=== PATIENT | female | born 1995 | race Caucasian/White ===

== ENCOUNTER → 2017-04-22 17:55 | Outpatient (CLI) | payer BC, SELFPAY ==
[2017-04-22 20:11] LABS: Chlamydia Trachomatis by PCR Negative (Negative); Neisserai gonorrhoeae by PCR Negative (Negative); Probe Check PASS; Sample Adequacy Control PASS; Specimen Processing Control PASS
== END ==
PROVIDERS: Visit Provider Nurse Practitioner Women's Health
DX: Z11.3 Encounter for screening for infections with a predominantly sexual mode of transmission (principal)
CPT/HCPCS: 87491; 87591

== ENCOUNTER → 2018-04-23 18:45 | Outpatient (CLI) | payer OTHER, SELFPAY ==
[2018-04-23 13:32] VITALS: BMI 28.1
[2018-04-23 22:25] LABS: Chlamydia Trachomatis by PCR Negative (Negative); Neisserai gonorrhoeae by PCR Negative (Negative); Probe Check PASS; Sample Adequacy Control PASS; Specimen Processing Control PASS
[2018-04-29 16:39] LABS: HPV APTIMA, High Risk Negative (Negative)
== END ==
PROVIDERS: Referring Provider Nurse Practitioner Women's Health; Visit Provider Nurse Practitioner Women's Health
DX: Z12.4 Encounter for screening for malignant neoplasm of cervix (principal); Z11.3 Encounter for screening for infections with a predominantly sexual mode of transmission
CPT/HCPCS: 87491; 87591; 88175; G0145

== ENCOUNTER → 2019-03-18 | Outpatient (CLI) | payer OTHER, SELFPAY ==
[2019-03-18 11:14] VITALS: BMI 28.1
[2019-03-18 17:07] LABS: Amphetamine Urine VISTA NEGATIVE (<1000 ng/mL); Barbiturate Urine VISTA NEGATIVE (< 200 ng/mL); Benzodiazepine Urine VISTA NEGATIVE (< 200 ng/mL); Cocaine Urine VISTA NEGATIVE (< 300 ng/mL); Ecstacy Urine VISTA NEGATIVE (< 500 ng/mL); Methadone Urine VISTA NEGATIVE (< 300 ng/mL); PCP Urine VISTA NEGATIVE (< 25 ng/mL); THC Urine VISTA NEGATIVE (< 50 ng/mL); Vista UDS pH Range 5
[2019-03-18 19:42] LABS: Chlamydia Trachomatis by PCR Negative (Negative); Neisserai gonorrhoeae by PCR Negative (Negative); Probe Check PASS; Sample Adequacy Control PASS; Specimen Processing Control PASS
== END | disposition home or self-care (01) ==
LOC: LABSPEC 16:08
PROVIDERS: Referring Provider Nurse Practitioner Women's Health; Visit Provider Nurse Practitioner Women's Health
DX: Z34.90 Encounter for supervision of normal pregnancy, unspecified, unspecified trimester (principal)
CPT/HCPCS: 80307; 87086; 87088; 87491; 87591

== ENCOUNTER → 2019-04-16 11:07 | Outpatient (CLI) | payer OTHER, SELFPAY ==
[2019-04-16 11:05] VITALS: BMI 28.1
[2019-04-16 11:41] LABS: Absolute Neutrophil Count 7.4 X10^3/uL (2.0-7.7); Basophil# 0.04 X10^3/uL; Basophil% 0.4 % (0-1); Eosinophils% 0.9 % (0-5); Hematocrit 39.1 % (37-47); Hemoglobin 13.6 g/dL (12.0-15.0); Mean Corp Hgb Conc 34.8 g/dL (32-36); Mean Corpuscular Hgb 30.9 pg (27.0-32.0); Mean Corpuscular Volume 88.9 fL (81-99); Mean Platelet Vol. 9.7 fl (6.2-12.0); Monocyte# 0.88 X10^3/uL; Monocyte% 8.1 % (0-10); NRBC Flagged by Analyzer 0 % (0-5); Neutrophil # 7.37 X10^3/uL (2.7-7.7); Neutrophil % 67.6 % (47-70); Platelet Count 283 K/mm3 (150-450); RBC Distribution Width CV 12.3 % (11.6-14.6); RBC Distribution Width SD 39.9 fl (35.1-43.9); White Blood Count 10.9 K/mm3 (4.4-11.0)
[2019-04-16 12:46] LABS: HIV - WCH Non-Reactive (Nonreactive); Hepatitis B Surface Antigen Non-Reactive (Nonreactive); Hepatitis C Antibody Non-Reactive (Nonreactive)
[2019-04-22 00:26] LABS: Rapid Plasmin Reagin (RPR) NONREACTIVE (NONREACTIVE)
== END ==
PROVIDERS: Nurse Practitioner Women's Health; Referring Provider Obstetrics & Gynecology; Visit Provider Obstetrics & Gynecology
DX: Z34.90 Encounter for supervision of normal pregnancy, unspecified, unspecified trimester (principal)
CPT/HCPCS: 36415; 85025; 86592; 86703; 86762; 86803; 86850; 86900; 86901; 87340

== ENCOUNTER → 2019-07-23 13:37 | Outpatient (CLI) | payer OTHER, SELFPAY ==
[2019-07-23 13:32] VITALS: BMI 29.8
[2019-07-23 15:48] LABS: Absolute Lymphocyte Count 2.14 X10^3/uL (0.83-4.51); Absolute Neutrophil Count 8.7 X10^3/uL (2.0-7.7); Basophil# 0.04 X10^3/uL; Basophil% 0.3 % (0-1); Eosinophil# 0.07 X10^3/uL; Eosinophils% 0.6 % (0-5); Hematocrit 37.6 % (37-47); Hemoglobin 12.7 g/dL (12.0-15.0); Lymphocyte # 2.14 X10^3/ul (4.0); Lymphocyte % 17.4 % (19-41); Mean Corp Hgb Conc 33.8 g/dL (32-36); Mean Corpuscular Hgb 31.9 pg (27.0-32.0); Mean Corpuscular Volume 94.5 fL (81-99); Mean Platelet Vol. 10.3 fl (6.2-12.0); Monocyte# 1.01 X10^3/uL; Monocyte% 8.2 % (0-10); NRBC Flagged by Analyzer 0 % (0-5); Neutrophil # 8.73 X10^3/uL (2.7-7.7); Neutrophil % 71.1 % (47-70); Platelet Count 268 K/mm3 (150-450); RBC Distribution Width SD 44.5 fl (35.1-43.9); Red Blood Count 3.98 M/mm3 (4.2-5.4); White Blood Count 12.3 K/mm3 (4.4-11.0)
[2019-07-23 16:18] LABS: Glucose Challenge Gest 1H 50g 94 mg/dL (70-140)
== END ==
PROVIDERS: Referring Provider Nurse Practitioner Women's Health; Visit Provider Nurse Practitioner Women's Health
DX: Z34.00 Encounter for supervision of normal first pregnancy, unspecified trimester (principal)
CPT/HCPCS: 36415; 82950; 85025

== ENCOUNTER → 2019-09-24 | Outpatient (CLI) | payer OTHER, SELFPAY ==
[2019-09-24 14:13] VITALS: BMI 34.4
== END | disposition home or self-care (01) ==
LOC: LABSPEC 16:24
PROVIDERS: Referring Provider Obstetrics & Gynecology; Visit Provider Obstetrics & Gynecology
DX: Z34.00 Encounter for supervision of normal first pregnancy, unspecified trimester (principal)
CPT/HCPCS: 87081

== ENCOUNTER → 2019-10-06 10:16 | Outpatient (CLI) | payer OTHER, SELFPAY ==
[2019-09-30 13:49] VITALS: BMI 34.4
== END ==
PROVIDERS: PCP Family Medicine; Referring Provider Obstetrics & Gynecology; Visit Provider Obstetrics & Gynecology
DX: Z11.59 Encounter for screening for other viral diseases (principal)
CPT/HCPCS: 87635; 94799; U0003

== ENCOUNTER 2019-10-13 04:55 | Inpatient (IN) | payer OTHER, SELFPAY ==
[2019-09-30 13:49] VITALS: BMI 34.4
[2019-10-09 12:46] VITALS: BMI 34.4
[2019-10-13] VITALS (17 sets, daily range): BP systolic 66–116; BP diastolic 36–92; PULSE 71–112; RESP 14–18; TEMP 36.1–37.3; O2SAT 95–99; BMI 37.3
--- NOTE | 2019-10-13 04:40 | PCM.HPOB.BLA ---
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 Growth US q4w. Declined further genetic testing. Stable MFM US on 08/02/19, stable 08/30/19 US, consultation w ped. ortho surgery already done (2) Status: Acute Qualifiers: Comment: declined carrier, NIPT, NTd screen. FOB adopted. Anatomy reviewed. nl echo. COVID neg (3) Supervision of normal first Status: Acute Qualifiers: Comment: PRR MARYANN 10/19/19 girl Conner [place] (4) Transverse vaginal septum Status: Acute Comment: Csection scheduled 10/12 at 7:30am. recommend primary low transverse c section for delivery. 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 OB Visit MARYANN Calculator Estimated Delivery Date Method Current WG Current Estimate 10/19/19 Ultrasound #1 38w 4d Other Estimates 10/19/19 LMP (Certain) 38w 4d Expected Delivery Route/Plan LTCS with SM due to septum Labor Preferences- CB/BF classes: declines labor support person: Orion labor intervention preferences: none pain management options preferred: open to epidural cut cord/dad catch: yes yes : yes PP control planned: pill discussed possible routes of delivery and associated risks: discussed possible delivery modalities and possible indications for each including R/B/A of , VAVD, and CS. questions answered. special requests: none Specific Issue/Plans flu vaccine given tdap vaccine given rhogam na LARC form signed yes movement and labor precautions reviewed. Problem list reviewed and updated with the most current details and appropriate orders placed. Continue routine care and follow up unless otherwise noted in visit notes/problem list details. Initial Weight: 152 lb Date EGA Weight BP Urine Prot Glucose FHR FuHt Pres Dilation Effaced St Visit Note 03/18/19 9w 2d 152 lb 2 oz (+2 oz) 100/56 168 04/16/19 13w 3d 159 lb (+7 lb) 102/56 167 SM- no vb cramping 05/14/19 17w 3d 160 lb (+8 lb) 96/60 Negative Negative 155 SM- no vb lof cramping anatomy scheduled 06/25/19 23w 3d 174 lb (+22 lb) 116/62 Negative Negative 145 Sm- no vb lof good fm no regular ctx 07/23/19 27w 3d 181 lb (+29 lb) 106/70 Negative Negative 151 27 MH-No Vb, LOF. Good Fm. 28 wk labs, tdap. 08/13/19 30w 3d 192 lb (+40 lb) 118/84 Negative Negative 135 31 Sm- no vb lof good fm no regular ctx 08/27/19 32w 3d 194 lb (+42 lb) 126/70 Negative Negative 130 33 SM- no vb lof good fm no regular ctx 09/10/19 34w 3d 201 lb (+49 lb) 136/80 Negative Negative 130 34 Cephalic SM- no vb lof good fm no regular ctx 09/24/19 36w 3d 203 lb 6 oz (+51 lb 6 oz) 124/80 Negative Negative 130 36 Cephalic 1.5 SM- no vb lof good fm no regular ctx. Upon cervical exam examination was noted that the patient has a SM- no vb lof good fm no regular ctx. left cervix dilated right closed. Upon cervical exam examination was noted that the patient has a transverse vaginal septum and a duplication of the cervix suspicious for uterine didelphys. This had not been previously diagnosed and it was discussed with the patient that this could be a risk at delivery for hemorrhage due to rupture of septum that would be difficult to repair at the time of delivery. I would recommend proceeding with a primary low transverse and consider DOLLY AC for future labors if the septum is removed in the interval. 09/30/19 37w 2d 208 lb (+56 lb) 120/88 Negative Negative 145 37 Cephalic Sm- no vb lof good fm no regular ctx schedule cs 10/08/19 38w 3d 208 lb 2 oz (+56 lb 2 oz) 138/80 Negative Negative 140 38 Cephalic GP - no LOF, VB, DFM, ctx. Discussed risks and benefits of . ACOG First Trimester First Trimester: Discussed Diagnostics Diagnostics Diagnostics Blood Type A POSITIVE 04/16/19 Antibody Screen NEGATIVE 04/16/19 Glucose 1 Hr 50 gm 94 mg/dL (70-140) 07/23/19 HIV 1&2 Antibody Non-Reactive (Nonreactive) 04/16/19 Rubella IgG Antibody 17.0 IU/mL 04/16/19 Hgb 12.7 g/dL (12.0-15.0) 07/23/19 Hct 37.6 % (37-47) 07/23/19 RPR NONREACTIVE (NONREACTIVE) 04/16/19 Details: HIV: Urine Culture: Sequential Screen: NIPT Screen: ROS Const Denies chills, Reports fatigue, Denies fever(s), Denies headache(s), Reports increased appetite, Reports weight gain ENT Denies headache(s) Card Denies chest pain, Denies shortness of breath Resp Denies cough, Denies shortness of breath GI Denies constipation, Denies heartburn, Denies nausea, Denies vomiting Denies abnormal vaginal bleeding, Denies painful urination, Denies pelvic pain, Denies vaginal discharge Skin/Breast Reports breast pain Neuro No headache(s) Psych Denies anxiety, Denies depression Endo Reports fatigue Exam Const General: cooperative, healthy appearing, comfortable, no acute distress, well developed, well groomed Orientation: alert, awake, oriented x3 HENMT Head: normal to inspection, normocephalic, atraumatic Neck Neck: normal visual inspection, full ROM Resp Effort & Inspection: normal respiratory effort, able to speak in complete sentences, symmetric chest movement Cardio Rate: regular rate GI Inspection: normal to inspection, non-distended Palpation: soft, no guarding, not rigid, nontender, other (gravid) Skin General: no rashes or lesions noted, elasticity normal, turgor normal Lesions: no lesions Rashes: no rashes Trauma: no lacerations or abrasions Neuro General: alert, awake, oriented x3, tone normal, moves all extremities Cranial Nerves: CN's II-XI intact bilaterally, PERRL, accommodation normal, EOM intact bilaterally Cognition: normal cognition Speech: speech normal Gait: normal gait Extrem General: full ROM, no pedal edema Psych Appearance: grossly normal, well kempt Mental Status: mental status grossly normal Mood: congruent mood Affect: normal affect Speech and Movement: speech and movement normal Attitude: cooperative Thought Process: normal Thought Content: normal Judgment: judgment good Results POC Urinalysis 2 Dip (Clinic) Office Urine Glucose Negative Last Edit by Dana Proctor on 10/08/19 14:13 Office Urine Protein Negative Last Edit by Dana Proctor on 10/08/19 14:13 Assessment & Plan Plan - Dr. Shyla Mina MD [facility] trimester education reviewed and updated. see problem list details for updated plan management information and see below for orders placed at this visit. Orders Orders: POC Urinalysis 2 Dip (Clinic) 10/08/19 Coding Level of Care Code OB Routine UPDATE- I have seen the patient and performed any clinically relevant updates to the history and physical exam. Britt Vance MD
[2019-10-13] MEDS: Lactated Ringers 1,000 ML 999 ML IV (05:25)
[2019-10-13 05:37] LABS: Absolute Neutrophil Count 8.5 X10^3/uL (2.0-7.7); Basophil# 0.04 X10^3/uL; Basophil% 0.4 % (0-1); Eosinophil# 0.06 X10^3/uL; Eosinophils% 0.5 % (0-5); Hematocrit 37.1 % (37-47); Hemoglobin 12.6 g/dL (12.0-15.0); Lymphocyte % 14.2 % (19-41); Mean Corpuscular Hgb 31.3 pg (27.0-32.0); Mean Corpuscular Volume 92.3 fL (81-99); Mean Platelet Vol. 10.5 fl (6.2-12.0); Monocyte# 0.88 X10^3/uL; Monocyte% 7.8 % (0-10); NRBC Flagged by Analyzer 0 % (0-5); Neutrophil # 8.46 X10^3/uL (2.7-7.7); Neutrophil % 74.9 % (47-70); Platelet Count 232 K/mm3 (150-450); RBC Distribution Width CV 13.5 % (11.6-14.6); RBC Distribution Width SD 44.8 fl (35.1-43.9); Red Blood Count 4.02 M/mm3 (4.2-5.4); White Blood Count 11.3 K/mm3 (4.4-11.0)
[2019-10-13] MEDS: Acetaminophen 500 MG Tablet 1000 MG PO ×4 (05:44→23:57)
[2019-10-13] MEDS: Lactated Ringers 1,000 ML 150 ML IV (06:27)
[2019-10-13] MEDS: Sodium Citrate/Citric Acid 30 ML UDC PO (07:26)
[2019-10-13] MEDS: Cefazolin 2 GM in 0.9% Normal Saline 100 ML IV (07:31)
--- NOTE | 2019-10-13 07:43 | OP.PCM_ITS ---
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 Growth US q4w. Declined further genetic testing. Stable MFM US on 08/02/19, stable 08/30/19 US, consultation w ped. ortho surgery already done (2) Status: Acute Qualifiers: Comment: declined carrier, NIPT, NTd screen. FOB adopted. Anatomy reviewed. nl echo. COVID neg (3) Supervision of normal first Status: Acute Qualifiers: Comment: PRR MARYANN 10/19/19 girl Conner Richmond (4) Transverse vaginal septum Status: Acute Comment: Csection scheduled 10/12 at 7:30am. recommend primary low transverse c section for delivery. RGI referral after for septum removal (5) Uterus didelphys Status: Acute Comment: needs two paps PP Delivery Classification: Scheduled Final MARYANN: 10/19/19 Gestational age: 39 Weeks and 6 Days vp strategic partnerships: Shyla Mina Type of Anesthesia:: Spinal Special Medications: none Implants Used: none Date of Procedure: 10/13/19 Pre-Operative Diagnosis: didelphys and vaginal transverse septum Post-Operative Diagnosis: same in right horn Description of Procedure: The patient is a 24-year-old G1, P0 at 39 and 1 presented for primary . She has an intact transverse vaginal septum rating the upper two thirds of the vagina and uterine didelphys and therefore to eliminate risk for trauma with childbirth decision for primary low transverse was made. Spinal anesthesia was placed without difficulty. Martinez catheter was placed. The patient was placed in the dorsal supine position with leftward tilt. Patient was prepped and draped in the normal sterile fashion. Pfannenstiel skin incision was made with the scalpel and carried through to the underlying layer of fascia with the scalpel. Fascia was nicked in the midline and the incision extended laterally. The rectus bellies were dissected off superiorly and inferiorly with out complication both sharply and bluntly. The peritoneum was entered digitally. The incision was stretched and a low transverse uterine incision was made with the scalpel. was noted to be in the right horn of the didelphyic uterus. The 's head was delivered atraumatically followed by the anterior and posterior shoulders without complication the rest of the delivered. The cord was clamped and cut and the infant was handed off to awaiting nurse. The placenta was delivered spontaneously immediately following and was noted to be intact and have a three-vessel cord. The uterus was exteriorized cleared of all clots and debris, and the incision was closed in a double layer closure using #1 Monocryl. The ovaries and fallopian tubes were noted to be within normal limits. The uterus was returned to the maternal abdomen and gutters were cleared of all clots and debris. The peritoneum was closed with 3-0 Monocryl in a running fashion. Gloves were changed prior to fascial closure. Fascia was closed with 0 PDS in a running fashion. Subcutaneous tissue was copiously irrigated and the skin was closed with 3-0 Monocryl in a subcuticular fashion. Mepilex dressing was applied without complication. Patient was taken to recovery in stable condition. It was discussed with the patient that based on the clinical information obtained d uring this encounter, combined with her history, at this time I would recommend vaginal if septum is removed in between pregnancies or for future deliveries if further pregnancies are desired. Amniotic Membrane Rupture Type: Artificial Amniotic Fluid Description: Clear Placenta Disposition: [facility] Fluids Replaced: crystalloid Cord Vessel Description: 3 Vessels Infant Gender: Male Delayed cord clamping: Yes Antibiotic Given: Ancef 2 grams IV x1 Pt instructed on risks of surgery: Bleeding, Anesthesia Risks, Infection, Injury to surrounding structure(s) including bowel and bladder Complications: None - Admit VTE Documentation VTE Present on Admission: No VTE Mechan Device Prophylaxis: SCD's Multi Select Codes - Urinary/Genital Urinary/Genital CPT Codes: 78500 Delivery [facility]
[2019-10-13] MEDS: Oxytocin 30 units/NS 500 ml 30 UNITS/500 ML IV.SOLN 167 UNITS IV (08:35)
[2019-10-13] MEDS: Lactated Ringers 500 ML IV.SOLN. IV (08:50)
[2019-10-13] MEDS: Lactated Ringers 1,000 ML 100 ML IV (11:38)
[2019-10-13] MEDS: Senna/Docusate Sodium 1 Tablet PO (11:39)
[2019-10-13] MEDS: Ketorolac 30 MG/ML Syringe IV ×2 (14:28→20:19)
[2019-10-13] MEDS: 0.9% Saline Lock 10 ML Syringe IV (14:28)
[2019-10-13] MEDS: Enoxaparin 40 MG/0.4 ML Syringe SC (20:19)
[2019-10-14] VITALS: BP 97/59; PULSE 93; RESP 18; TEMP 36.7; O2SAT 96
[2019-10-14] MEDS: Ketorolac 30 MG/ML Syringe IV ×2 (02:23→07:48)
[2019-10-14] MEDS: 0.9% Saline Lock 10 ML Syringe IV ×2 (02:24→07:48)
[2019-10-14 03:15] VITALS: BP 106/62; PULSE 90; RESP 18; TEMP 37.2; O2SAT 100
[2019-10-14] MEDS: Acetaminophen 500 MG Tablet 1000 MG PO ×4 (06:09→23:59)
[2019-10-14 06:27] LABS: Hematocrit 32.6 % (37-47); Hemoglobin 10.8 g/dL (12.0-15.0); Mean Corp Hgb Conc 33.1 g/dL (32-36); Mean Corpuscular Hgb 31.4 pg (27.0-32.0); Mean Corpuscular Volume 94.8 fL (81-99); Mean Platelet Vol. 10.5 fl (6.2-12.0); Platelet Count 185 K/mm3 (150-450); RBC Distribution Width CV 13.7 % (11.6-14.6); RBC Distribution Width SD 46.5 fl (35.1-43.9); Red Blood Count 3.44 M/mm3 (4.2-5.4); White Blood Count 10.1 K/mm3 (4.4-11.0)
[2019-10-14 07:56] VITALS: BP 97/55; PULSE 88; RESP 18; TEMP 36.7
--- NOTE | 2019-10-14 07:56 | PCM.PN.OB ---
Subjective: Patient doing well without complaints. Pain well controlled. Tolerating PO. Passing gas. Ambulating and voiding without difficulty. Breast feeding without difficulty. Denies chest pain, shortness of breath, calf pain/swelling, fevers, chills, lightheadedness. Objective: Laboratory Tests 10/14/19 Range/Units 06:15 WBC 10.1 (4.4-11.0) K/mm3 RBC 3.44 L (4.2-5.4) M/mm3 Hgb 10.8 L (12.0-15.0) g/dL Hct 32.6 L (37-47) % MCV 94.8 (81-99) fL MCH 31.4 (27.0-32.0) pg MCHC 33.1 (32-36) g/dL RDW Std Deviation 46.5 H (35.1-43.9) fl RDW Coeff of Marisa 13.7 (11.6-14.6) % Plt Count 185 (150-450) K/mm3 MPV 10.5 (6.2-12.0) fl - Physical Exam Vitals/I&O's: Vital Signs Temp Pulse Resp BP Pulse Ox 98.9 F 90 18 106/62 100 10/14/19 03:15 10/14/19 03:15 10/14/19 03:15 10/14/19 03:15 10/14/19 03:15 Oxygen Delivery Method Room Air Weight: 210 lb 12.191 oz Body Mass Index (BMI) 37.3 Intake and Output for Last 24 Hours 10/12/19 10/13/19 10/14/19 23:59 23:59 23:59 Intake Total 2770 / 2770 Output Total 425 / 1025 600 / 600 Balance 2345 / 1745 -600 / -600 General: Alert, Oriented x3, Cooperative HEENT: Atraumatic, PERRLA, EOMI, Normocephalic Neck: Supple Lungs: Clear to auscultation, Normal air movement, No rhonchi Cardiovascular: Regular rate, No murmurs Abdomen: Bowel Sounds Present, Soft, Non Tender, Non-Distended, - - Dressing in place - c/d/i Neurological: Cranial nerves II-XII grossly intact Psych/Mental Status: Normal Affect, Appropriate Laboratory Results 10/14/19 06:15: WBC 10.1, RBC 3.44 L, Hgb 10.8 L, Hct 32.6 L, MCV 94.8, MCH 31.4, MCHC 33.1, RDW Std Deviation 46.5 H, RDW Coeff of Marisa 13.7, Plt Count 185, MPV 10.5 Current Medications Acetaminophen (Tylenol) 1,000 mg PO Q6 [facility] Last Admin: 10/14/19 06:09 Dose: 1,000 mg Documented by: Bisacodyl (Dulcolax) 10 mg RECTAL UD PRN PRN Reason: If no BM Diphenhydramine HCl (Benadryl) 25 mg PO Q6H PRN PRN PRN Reason: ITCHING Stop: 10/14/19 08:47 Enoxaparin Sodium (Lovenox) 40 mg SC DAILY [facility] Last Admin: 10/13/19 20:19 Dose: 40 mg Documented by: Hydrocortisone (Hytone) 1 applic TOPICAL TID PRN PRN; Protocol PRN Reason: Discomfort Naloxone HCl 4 mg/ Dextrose 504 mls @ 0 mls/hr IV .Q0M PRN; Protocol PRN Reason: Respiratory depression Ketorolac Tromethamine (Toradol (Bkc)) 30 mg IV Q6H [facility] Stop: 10/14/19 08:01 Last Admin: 10/14/19 07:48 Dose: 30 mg Documented by: Methylergonovine Maleate (Methergine) 0.2 mg IM X1 PRN PRN Reason: Uterine Atony Nalbuphine HCl (Nubain) 5 mg IV Q3H PRN PRN PRN Reason: ITCHING Stop: 10/14/19 08:47 Naloxone HCl (Narcan) 0.02 mg IV Q1M PRN PRN Reason: RR <10 and pt unresponsive Naproxen (Naprosyn) 500 mg PO Q8 [facility] Ondansetron HCl (Zofran) 4 mg IV Q4H PRN PRN PRN Reason: Nausea Oxycodone HCl (Oxyir) 5 - 10 mg PO Q4H PRN PRN PRN Reason: Pain Score 4-10/10 Prochlorperazine Edisylate (Compazine Iv) 10 mg IV Q6H PRN PRN PRN Reason: NAUSEA Senna/Docusate Sodium (Senokot-S, Barbra-Colace) 0 tablet PO DAILY [facility] Last Admin: 10/13/19 11:39 Dose: 2 tablet Documented by: Simethicone (Mylicon) 80 mg PO PCHS PRN PRN Reason: Indigestion/stomach pain Sodium Chloride () 5 - 15 ml IV UD PRN PRN Reason: SALINE FLUSH Last Admin: 10/14/19 07:48 Dose: 10 ml Documented by: Medical Necessity - Tobacco Use Smoking Status: Never smoker Assessment/Plan All Active Problems (Last Reviewed 10/08/19 @ 14:06 by Dana Proctor) Uterus didelphys (Acute) Transverse vaginal septum (Acute) 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 routine post care 2. breast feeding- support given 3. rh positive 4. rubella immune
[2019-10-14] MEDS: Senna/Docusate Sodium 1 Tablet PO (10:19)
[2019-10-14] MEDS: Enoxaparin 40 MG/0.4 ML Syringe SC (10:19)
[2019-10-14 13:02] VITALS: BP 121/75; PULSE 95; RESP 18; TEMP 37.3; O2SAT 97
[2019-10-14] MEDS: oxyCODONE 5 MG Tablet PO (13:10)
--- NOTE | 2019-10-14 13:13 | NURSING ---
upon entering room at 1255, pt found to be crying, states pain level 5. c/o right epigastric pain. Bp WNL see VS. denies h/a blurred vision. Pt then c/o pain in right shoulder. Pt assisted to L side lying position with right knee flexed to chest.
[2019-10-14] MEDS: Naproxen 250 MG Tablet 500 MG PO ×2 (14:30→21:57)
[2019-10-14 19:27] VITALS: BP 108/61; PULSE 100; RESP 16; TEMP 37.3; O2SAT 96
--- NOTE | 2019-10-14 22:10 | NURSING ---
This RN assuming care of patient and at this time. Bedside report received from Colleen MORENO.
[2019-10-15 01:27] VITALS: BP 115/69; PULSE 94; RESP 16; TEMP 36.7
[2019-10-15] MEDS: Acetaminophen 500 MG Tablet 1000 MG PO (06:11)
[2019-10-15] MEDS: Naproxen 250 MG Tablet 500 MG PO (06:11)
--- NOTE | 2019-10-15 07:55 | DCINST_ITS ---
Discharge Diet: No Restrictions Discharge Activity: May Not Drive - for 2 weeks or while taking narcotic pain meds., May Shower, May Take a Tub Bath - in 7 days. May resume sexual activity in: 4-6 weeks Lifting Restrictions: 20 pounds Additional Activity Instructions:: Nothing in the vagina for 4-6 weeks. You may return to work/school in 6 weeks. Call your doctor if your incision/area has: Continuous Slow Oozing, Sudden Increased Bleeding, Increased Pain/ Swelling, Increased Redness, Foul Smelling Discharge Call your doctor if you observe: Fever of 101 or Higher Suture Line Care: Avoid Pulling/Pushing, Avoid Pinching/Bending Additional Instructions: If you experience any of the following, contact your healthcare provider. * Bleeding that soaks a pad every hour for 2 hours * Fever 100.4 or higher * Unrelieved incision or abdominal pain * Swelling, redness, discharge or bleeding from your incision or episiotomy site * Your incision begins to separate * Problems urinating (including inability to urinate or burning while urinating). * Visual changes * Severe headache * Flu-like symptoms * Pain or redness in one of both of your breasts * Pain, warmth, tenderness or swelling in your legs, especially the calf area * Frequent nausea and vomiting * Symptoms of depression or anxiety If you experience any of the following, call 911 or go to the nearest Emergency Room. * Chest pain * Problems breathing * Seizure activity * Partial or complete paralysis of a body part, slurred speech, weakness or drooping of the face, or a sudden inability to walk or hold your balance Allergies/Adverse Reactions: Allergies No Known Allergies Allergy (Verified 10/13/19 05:52) Medications to take at Discharge vitamin#30 30 mg iron-10 mg iron-folic acid 1 mg-omg3 capsule 1 cap PO DAILY 04/16/19 Follow-Up: Call to make an appointment with your doctor for an incision check in 1-2 weeks. You will also need a 6 week post- follow up appointment. Test results from this visit will be discussed in further detail at your follow- up appointment, if applicable. Primary Care Physician: Anu Biggs MD [Primary Care Provider] -
--- NOTE | 2019-10-15 07:56 | PN.OBGYN_ITS ---
Subjective: Patient doing well without complaints. Pain well controlled. Tolerating PO. Ambulating and voiding without difficulty. Passing gas. Breast feeding without difficulty. Denies chest pain, shortness of breath, calf pain/swelling, fevers, chills, lightheadedness. Objective: Laboratory Tests 10/14/19 10/13/19 10/13/19 Range/Units 06:15 05:25 05:25 WBC 10.1 11.3 H (4.4-11.0) K/mm3 RBC 3.44 L 4.02 L (4.2-5.4) M/mm3 Hgb 10.8 L 12.6 (12.0-15.0) g/dL Hct 32.6 L 37.1 (37-47) % MCV 94.8 92.3 (81-99) fL MCH 31.4 31.3 (27.0-32.0) pg MCHC 33.1 34.0 (32-36) g/dL RDW Std Deviation 46.5 H 44.8 H (35.1-43.9) fl RDW Coeff of Marisa 13.7 13.5 (11.6-14.6) % Plt Count 185 232 (150-450) K/mm3 MPV 10.5 10.5 (6.2-12.0) fl Immature Gran % (Auto) 2.200 H (0.0-0.9) % Neut % (Auto) 74.9 H (47-70) % Lymph % (Auto) 14.2 L (19-41) % Otero % (Auto) 7.8 (0-10) % Eos % (Auto) 0.5 (0-5) % Baso % (Auto) 0.4 (0-1) % Absolute Neuts (auto) 8.5 H (2.0-7.7) X10^3/uL Absolute Lymphs (auto) 1.60 (0.83-4.51) X10^3/uL Nucleated RBC % 0 (0-5) % Blood Type A POSITIVE Antibody Screen NEGATIVE - Physical Exam Vitals/I&O's: Vital Signs Temp Pulse Resp BP Pulse Ox 98.1 F 94 16 115/69 96 10/15/19 01:27 10/15/19 01:27 10/15/19 01:10/15/19 01:27 10/14/19 19:27 Oxygen Delivery Method Room Air Weight: 210 lb 12.191 oz Body Mass Index (BMI) 37.3 Intake and Output for Last 24 Hours 10/13/19 10/14/19 10/15/19 23:59 23:59 23:59 Intake Total 2770 / 2770 Output Total 425 / 1025 600 / 600 Balance 2345 / 1745 -600 / -600 General: Alert, Oriented x3, Cooperative HEENT: Atraumatic, PERRLA, EOMI, Normocephalic Neck: Supple Lungs: Normal air movement Cardiovascular: Regular rate Abdomen: Soft, Non Tender, Non-Distended, Passing Flatus, - - Incision c/d/o with dressing in place, fundus firm Extremities: No edema, No Calf Tenderness Neurological: Cranial nerves II-XII grossly intact, Neuro grossly intact Psych/Mental Status: Normal Affect, Appropriate Current Medications Acetaminophen (Tylenol) 1,000 mg PO Q6 [facility] Last Admin: 10/15/19 06:11 Dose: 1,000 mg Documented by: Bisacodyl (Dulcolax) 10 mg RECTAL UD PRN PRN Reason: If no BM Enoxaparin Sodium (Lovenox) 40 mg SC DAILY [facility] Last Admin: 10/14/19 10:19 Dose: 40 mg Documented by: Hydrocortisone (Hytone) 1 applic TOPICAL TID PRN PRN; Protocol PRN Reason: Discomfort Naloxone HCl 4 mg/ Dextrose 504 mls @ 0 mls/hr IV .Q0M PRN; Protocol PRN Reason: Respiratory depression Methylergonovine Maleate (Methergine) 0.2 mg IM X1 PRN PRN Reason: Uterine Atony Naloxone HCl (Narcan) 0.02 mg IV Q1M PRN PRN Reason: RR <10 and pt unresponsive Naproxen (Naprosyn) 500 mg PO Q8 [facility] Last Admin: 10/15/19 06:11 Dose: 500 mg Documented by: Ondansetron HCl (Zofran) 4 mg IV Q4H PRN PRN PRN Reason: Nausea Oxycodone HCl (Oxyir) 5 - 10 mg PO Q4H PRN PRN PRN Reason: Pain Score 4-10/10 Last Admin: 10/14/19 13:10 Dose: 10 mg Documented by: Prochlorperazine Edisylate (Compazine Iv) 10 mg IV Q6H PRN PRN PRN Reason: NAUSEA Senna/Docusate Sodium (Senokot-S, Barbra-Colace) 0 tablet PO DAILY [facility] Last Admin: 10/14/19 10:19 Dose: 2 tablet Documented by: Simethicone (Mylicon) 80 mg PO PCHS PRN PRN Reason: Indigestion/stomach pain Last Admin: 10/14/19 13:11 Dose: 80 mg Documented by: Sodium Chloride () 5 - 15 ml IV UD PRN PRN Reason: SALINE FLUSH Last Admin: 10/14/19 07:48 Dose: 10 ml Documented by: Medical Necessity - Tobacco Use Smoking Status: Never smoker Assessment/Plan All Active Problems (Last Reviewed 10/08/19 @ 14:06 by Dana Proctor) Uterus didelphys (Acute) Transverse vaginal septum (Acute) 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 routine post care 2. breast feeding- support given 3. rh positive 4. rubella immune 5. DC to home today
[2019-10-15 08:01] VITALS: BP 99/57; PULSE 87; RESP 16; TEMP 36.4; O2SAT 99
== END 2019-10-15 10:05 | disposition home or self-care (01) | DRG 788 ==
PROVIDERS: Admitting Provider Obstetrics & Gynecology; PCP Family Medicine; Referring Provider Obstetrics & Gynecology; Visit Provider Obstetrics & Gynecology
PROC: 10D00Z1 Extraction of Products of Conception, Low, Open Approach (ICD-10-PCS; CPT 59514; principal; 2019-10-13 07:15)
DX: O34.03 Maternal care for unspecified congenital malformation of uterus, third trimester (principal); Q51.20 Other doubling of uterus, unspecified; O35.8XX0 Maternal care for other (suspected) fetal abnormality and damage, not applicable or unspecified; Q52.11 Transverse vaginal septum; Z3A.39 39 weeks gestation of pregnancy; Z37.0 Single live birth
CPT/HCPCS: 85025; 85027; 86850; 86900; 86901; 99218; J7120; A4216; G0378; J2405

== ENCOUNTER → 2019-12-03 | Outpatient (CLI) | payer OTHER, SELFPAY ==
[2019-12-03 15:52] VITALS: BMI 32.1
[2019-12-09 16:22] LABS: HPV Reflexed? NOT INDICATED
[2019-12-09 21:34] LABS: HPV Reflexed? NOT INDICATED
== END | disposition home or self-care (01) ==
LOC: LABSPEC 16:55
PROVIDERS: PCP Family Medicine; Referring Provider Obstetrics & Gynecology; Visit Provider Obstetrics & Gynecology
DX: Z12.4 Encounter for screening for malignant neoplasm of cervix (principal); Q51.28 Other and unspecified doubling of uterus
CPT/HCPCS: 88175; G0145

== ENCOUNTER → 2020-12-07 11:44 | Outpatient (CLI) | payer OTHER, SELFPAY ==
[2020-12-11 15:21] LABS: HPV Reflexed? NOT INDICATED
== END ==
PROVIDERS: PCP Family Medicine; Visit Provider Obstetrics & Gynecology
DX: Q51.28 Other and unspecified doubling of uterus (principal); Z87.42 Personal history of other diseases of the female genital tract
CPT/HCPCS: 88175; G0145

== ENCOUNTER → 2021-12-17 | Outpatient (CLI) | payer OTHER, SELFPAY ==
[2021-12-28 14:21] LABS: HPV Reflexed? NOT INDICATED
== END | disposition home or self-care (01) ==
LOC: LABSPEC 16:57
PROVIDERS: PCP Family Medicine; Visit Provider Obstetrics & Gynecology
DX: Q51.28 Other and unspecified doubling of uterus (principal)
CPT/HCPCS: 88175; G0145

== ENCOUNTER 2022-03-26 03:16 | Inpatient (IN) | payer OTHER, SELFPAY ==
[2022-03-26] VITALS (19 sets, daily range): BP systolic 103–153; BP diastolic 71–97; PULSE 96–125; RESP 15–18; TEMP 36.4–37.1; O2SAT 96–100; BMI 34.0
--- NOTE | 2022-03-26 03:20 | CT_ITS ---
EXAM: CT ABDOMEN AND PELVIS WITH INTRAVENOUS CONTRAST CLINICAL INDICATION: rlq pain rlq pain TECHNIQUE: Helically acquired images were obtained of the abdomen and pelvis with intravenous contrast. This CT exam was performed using one or more of the following dose reduction techniques: automated exposure control, adjustment of the mA and/or kV according to patient size, and/or use of iterative reconstruction technique. This report was created using V2contact report generation technology. CONTRAST: IV 100mL Isovue-370 RADIATION DOSE: CTDIvol = 16.65 mGy, DLP = 819.14 mGy-cm COMPARISON: None. FINDINGS: LOWER THORAX: Unremarkable. Lung bases are clear. No cardiomegaly. No significant pericardial effusion. ABDOMEN: LIVER: Unremarkable. Homogeneous. No focal mass. GALLBLADDER AND BILE DUCTS: Unremarkable. No calcified gallstones. No gallbladder distention or wall edema. No intra- or extrahepatic biliary ductal dilation. PANCREAS: Unremarkable. No focal cystic or solid mass. SPLEEN: Unremarkable. Normal size without focal cystic or solid mass. ADRENALS: Unremarkable. No nodules. KIDNEYS AND URETERS: Unremarkable. Normal renal size and position. No hydronephrosis. STOMACH AND BOWEL: There is dilatation of the small bowel loops with diameters ranging up to 4 cm. As seen on axial images 78-86, there is a dilated loop of mid ileum which contains fecal-like material. There is mild mural thickening immediately distal to this point, which is likely to be inflammatory. However, small bowel lumen is not effaced and there is fluid distention of some loops of ileum distal to this point, indicating this does not represent a site of significant mechanical obstruction. There is decompression of some more distal small bowel loops, without demonstration of a discrete transition point. There is some mural thickening in the region of the terminal ileum as well. PELVIS: APPENDIX: The appendix is seen on axial images 46-65. The appendix is prominent in size with diameter 9 mm but not definitively abnormal. There is clean-appearing air in multiple segments of the appendix, including the distal appendix and there is no demonstrated appendicolith or periappendiceal fat infiltration or fluid. Acute appendicitis is thought to be unlikely. BLADDER: Unremarkable. REPRODUCTIVE: Unremarkable as visualized. No mass. ABDOMEN and PELVIS: INTRAPERITONEAL SPACE: There is a small amount of free fluid in the posterior cul-de-sac of the pelvis. No free air. BONES/JOINTS: Unremarkable. No suspicious lytic or blastic abnormality. SOFT TISSUES: There is an umbilical hernia, which contains fat. VASCULATURE: Unremarkable. Abdominal aorta is non-dilated. LYMPH NODES: Unremarkable. No enlarged lymph nodes. CT/Abdomen/Pelvis W IV Cont ONLY IMPRESSION: 1. Dilatation of some loops of [id number] ileum along with areas of mild mural thickening in the distal ileum, including terminal ileum. Findings suggest an infectious or inflammatory enteritis with overlying ileus. Crohn''s disease would be a consideration. Significant mechanical bowel obstruction is thought to be unlikely. 2. Appendix is prominent in size but not definitively abnormal with diameter of 9 mm. There are no surrounding inflammatory changes and acute appendicitis is thought to be unlikely. The appendix is located in the far right lateral abdomen and it is centered at the level of the umbilicus. Suggest clinical correlation with special attention in this region. 3. Small amount of free fluid in the posterior cul-de-sac of the pelvis, nonspecific finding. 4. Umbilical hernia contains fat, but no bowel. Electronically Signed: Vikram Kan MD at 4:50 EST ,
--- NOTE | 2022-03-26 03:21 | EDS_ITS ---
HPI HPI - GI History of Present Illness Chief Complaint: Abd Pain Informant: patient Abdominal Pain/Flank Pain Onset: Hours Context: Gradual Onset Timing: Continuous Quality: Aching Location: - (R abd) Current Severity: Severe Maximum Severity: Severe Worsened by: Car ride Relieved by: Nothing Nausea/Vomiting/Emesis GI Symptom: Positive for Nausea and Vomiting Onset: Today Diarrhea/Melena/Hematochezia GI Symptom: Negative for Diarrhea, Melena or Hematochezia Associated Symptoms Associated Symptoms: Negative for Dysuria, Frequency, Hematuria or Urgency Narrative Narrative: Patient with gradually worsening right-sided abdominal pain now associated with nausea and vomiting over the past 8 hours or more. No migration of the pain, just worsening in severity. No fevers or chills. Normal bowel movements and normal urination. Not that she knows of. No vaginal symptoms. Had a prior no other abdominal surgeries and otherwise healthy. Prior similar symptoms: No Recent Illness/Hospitalization: No PFSH PFSH Home Medications [place] 0.25 mg-35 mcg tablet (norgestimate-ethinyl estradiol) See Rx Instructions .Route .COMPLEX #364 tabs 12/17/21 [Rx Last Taken Unknown] Allergy/AdvReac Type Severity Reaction Status Date / Time No Known Allergies Allergy Verified 12/03/19 15:53 Family History Grandmother CVA (cerebral vascular accident) Heart disease Grandfather Heart disease Skin cancer COPD (chronic obstructive pulmonary disease) Aunt CVA (cerebral vascular accident) Breast cancer Father Cancer Surgical History History of low transverse section Social History Smoking Status: Never smoker alcohol intake: never substance use type: does not use caffeine: No what type of physical activity do you participate in: none seatbelt use: always do you feel safe at home: Yes additional social history: Regino Siddiqui Patient is unemployed ROS ROS ED Constitutional Constitutional ED: Denies chills or fever(s) Eyes Eyes: Denies change in vision or diplopia ENT ENT ED: Denies rhinorrhea or sore throat Cardiovascular Cardiovascular: Denies chest pain or palpitations Respiratory/Chest Respiratory/Chest: Denies cough or dyspnea Gastrointestinal Gastrointestinal: Reports abdominal pain, nausea and vomiting; Denies diarrhea Genitourinary Genitourinary ED: Denies dysuria, hematuria or urinary frequency Musculoskeletal Musculoskeletal: Denies back pain or neck pain Integumentary Denies abscess or rash Neurologic Neurologic: Denies headache(s), paresthesias or weakness Psychiatric Psychiatric: Denies anxiety or suicidal thoughts EXAM Physical Exam Const Vital Signs: 03/26/22 03:18 03/26/22 08:20 03/26/22 08:23 Temperature 98.8 F 98.3 F Temperature Source Temporal Oral Pulse Rate 125 H 96 Respiratory Rate 16 16 16 Blood Pressure 153/97 H 117/71 Blood Pressure Mean 115 86 Pulse Ox 100 99 Oxygen Delivery Method Room Air Room Air Positive well nourished and well developed Constitutional Narrative: Uncomfortable in pain but in no distress General Appearance ED: well developed and NAD HEENT Reports moist mucous membranes normocephalic and atraumatic Eyes PERRL and EOMs intact bilaterally Neck full ROM and supple Resp normal respiratory effort and clear to auscultation bilaterally Cardio regular rate, regular rhythm and no murmurs Rate: tachycardic GI non-distended GI Narrative: No tenderness in the right upper quadrant or lateral flank. Tender mostly in the area of McBurney's point. No guarding or rebound. Positive Rovsing and psoas, negative obturator sign. Auscultation: hypoactive bowel sounds Palpation: soft Back/Spine no CVA tenderness General Back: other FROM Extremity normal to inspection General Extremety ED: Negative for edema, pulses abnormal or tenderness General Extremity: Negative for edema or pulses abnormal Neuro oriented x3, CN's II-XII intact bilaterally and no sensory deficits noted Sensorium / Orientation: awake and alert Motor Exam: strength 5/5 throughout Skin no rashes or lesions noted and no wounds MDM MDM MDM Narrative Medical decision making narrative: Concern here for appendicitis. Ectopic as well as mimic such as mesenteric adenitis are also in the differential diagnosis, but CT with IV contrast is indicated. She is very nauseated and in a lot of pain, so I skipped oral contrast in order to avoid delays while treating her pain and nausea and given her IV fluids. [place] better after the medications. I reviewed the images and the radiology report. My interpretation of the CT agrees with that of the radiologist. The appendix is lateral to the cecum and rises to the level of the umbilicus, where the patient was initially complaining of pain. I reexamined her. She is tender there as well as down the McBurney's point. There are no inflammatory changes around appendix right now on the CT, but there are some possible mural thickening with mild dilatation at the terminal ileum. She does not have a history of Crohn's and has never had this pain before. I discussed with surgery Dr. Reid because I was considering early appendicitis more likely in this situation.His recommendation is to repeat a CT scan with oral contrast which should be done. His recommendation is to repeat the CT scan with oral contrast, which will be done. Repeat CT images and interpretation reviewed. My interpretation of the CT agrees with that of the radiologist. It now favors a possible evolving small bowel obstruction rather than any signs of appendicitis although the contrast did not make it all the way to the cecum. I discussed again with Dr. Reid's surgery. He recommends admitting to medicine, he will consult, and he also recommends repeating pelvic CT imaging in a couple hours to further evaluate distribution of the contrast which I think is reasonable. Plan is to admit her to observation. Lab Data Attestation: I reviewed the patient's lab results. Labs: Laboratory Results - last 24 hr 03/26/22 03/26/22 03/26/22 03:30 03:30 03:45 WBC 9.4 RBC 5.17 Hgb 15.2 H Hct 45.9 MCV 88.8 MCH 29.4 MCHC 33.1 RDW Std Deviation 38.8 RDW Coeff of Marisa 11.9 Plt Count 370 MPV 10.1 Immature Gran % (Auto) 0.300 Neut % (Auto) 57.6 Lymph % (Auto) 33.0 [place] % (Auto) 8.0 Eos % (Auto) 0.6 Baso % (Auto) 0.5 Absolute Neuts (auto) 5.4 Absolute Lymphs (auto) 3.10 Nucleated RBC % 0 Sodium 141 Potassium 3.6 Chloride 110 H Carbon Dioxide 19.0 L Anion Gap 12 BUN 10 Creatinine 0.92 Estim Creat Clear Calc 80.72 Est GFR (MDRD) Af Amer 96 Est GFR (MDRD) Non-Af 79 BUN/Creatinine Ratio 10.9 Glucose 96 Calcium 9.5 Urine Color Yellow Urine Clarity Clear Urine pH 6.0 Ur Specific [place] 1.025 Urine Protein 15 H Urine Glucose (UA) Normal Urine Ketones Negative Urine Occult Blood Negative Urine Nitrite Negative Urine Bilirubin Negative Urine Urobilinogen Normal Ur Leukocyte Esterase 500 H Urine RBC 0-5 SEEN Urine WBC 0-5 SEEN Ur Squamous Epith Cells 0-5 SEEN Urine Bacteria 3+ Urine Mucus 0 SEEN Urine Test Negative Radiography Diagnostic Testing: Clinical Impression(s) from Imaging Studies Abdomen/Pelvis CT 03/26/22 03:20 IMPRESSION: 1. Dilatation of some loops of [id number] ileum along with areas of mild mural thickening in the distal ileum, including terminal ileum. Findings suggest an infectious or inflammatory enteritis with overlying ileus. Crohn''s disease would be a consideration. Significant mechanical bowel obstruction is thought to be unlikely. 2. Appendix is prominent in size but not definitively abnormal with diameter of 9 mm. There are no surrounding inflammatory changes and acute appendicitis is thought to be unlikely. The appendix is located in the far right lateral abdomen and it is centered at the level of the umbilicus. Suggest clinical correlation with special attention in this region. 3. Small amount of free fluid in the posterior cul-de-sac of the pelvis, nonspecific finding. 4. Umbilical hernia contains fat, but no bowel. Electronically Signed: Vikram Kan MD at 4:50 EST , Abdomen CT 03/26/22 05:04 IMPRESSION: 1. Persistent distention of small bowel loops. Persistent area of fecal-like material in a segment of ileum increases suspicion for a low-grade mechanical obstruction, although no discrete transition point is identified. Focal ileus due to inflammation would remain a consideration.. Oral contrast has not progressed to this level and continued follow-up might be useful. 2. Appendix is not significantly changed in appearance. Acute appendicitis is thought to be unlikely. Electronically Signed: Vikram Kan MD at 8:01 EST , Discharge Plan Dx/Rx/DC Orders Clinical Impression: Right sided abdominal pain Disposition Disposition: Acute Care Hospital [facility]
[2022-03-26 03:40] LABS: Absolute Neutrophil Count 5.4 X10^3/uL (2.0-7.7); Basophil# 0.05 X10^3/uL; Basophil% 0.5 % (0-1); Eosinophil# 0.06 X10^3/uL; Eosinophils% 0.6 % (0-5); Hematocrit 45.9 % (37-47); Hemoglobin 15.2 g/dL (12.0-15.0); Mean Corp Hgb Conc 33.1 g/dL (32-36); Mean Corpuscular Hgb 29.4 pg (27.0-32.0); Mean Corpuscular Volume 88.8 fL (81-99); Mean Platelet Vol. 10.1 fl (6.2-12.0); Monocyte# 0.75 X10^3/uL; NRBC Flagged by Analyzer 0 % (0-5); Neutrophil # 5.41 X10^3/uL (2.7-7.7); Neutrophil % 57.6 % (47-70); Platelet Count 370 K/mm3 (150-450); RBC Distribution Width CV 11.9 % (11.6-14.6); RBC Distribution Width SD 38.8 fl (35.1-43.9); Red Blood Count 5.17 M/mm3 (4.2-5.4); White Blood Count 9.4 K/mm3 (4.4-11.0)
[2022-03-26] MEDS: Ondansetron 4 MG/2 ML Vial IV ×2 (03:43→09:37)
[2022-03-26] MEDS: 0.9% Normal Saline 1,000 ML 1000 ML IV (03:43)
[2022-03-26] MEDS: Morphine 4 MG/ML Syringe IV ×3 (03:43→12:20)
[2022-03-26 03:51] LABS: Mucous, Urine 0 SEEN /hpf (<or=2+)
[2022-03-26 03:53] LABS: Color, Urine Yellow (Yellow); Glucose, Dipstick Normal (Normal); Ketone-Dipstick Negative (Negative); Leukocyte Esterase-Dipstick 500 /ul (Negative); Nitrite-Dipstick Negative (Negative); Occult Blood-Urine Negative /ul (Negative); Protein-Dipstick 15 mg/dl (Negative); Specific Gravity, Urine 1.025 (1.002-1.030); Urine Bilirubin Dipstick Negative (Negative); Urine Clarity Clear (Clear); Urine Urobilinogen Normal (Normal)
[2022-03-26 03:58] LABS: Anion Gap 12 (5-15); BUN 10 mg/dL (7-18); BUN/Creat Ratio 10.9 RATIO (10-20); Calcium,Total 9.5 mg/dL (8.5-10.1); Chloride 110 mmol/L (98-107); Creatinine, Serum 0.92 mg/dL (0.55-1.02); EST Glomerular Filtration Rate 79 mL/min (>60); Est Glom Filt Rate - Afr Amer 96 mL/min (>60); Estimated Creatinine Clearance 80.72 ml/min; Glucose 96 mg/dL (74-106); Potassium 3.6 mmol/L (3.5-5.1); Sodium Level 141 mmol/L (136-145)
[2022-03-26 03:59] LABS: Internal QC Validated? YES +Cl - CLEAR BKGD; Pregnancy, Urine Negative Negative
[2022-03-26 04:01] LABS: Bacteria 3+ /hpf (None Seen); Red Blood Cells-Urine 0-5 SEEN /hpf (0-5); Squamous Epithelial Cells - UA 0-5 SEEN /hpf (5-10); White Blood Cells 0-5 SEEN /hpf (0-5)
--- NOTE | 2022-03-26 05:04 | CT_ITS ---
EXAM: CT ABDOMEN AND PELVIS WITHOUT INTRAVENOUS CONTRAST CLINICAL INDICATION: R abd pain, question early appy, COMPARE TO EARLIER EXAM R abd pain, question early appy, COMPARE TO EARLIER EXAM TECHNIQUE: Helically acquired images were obtained of the abdomen and pelvis without intravenous contrast. This CT exam was performed using one or more of the following dose reduction techniques: automated exposure control, adjustment of the mA and/or kV according to patient size, and/or use of iterative reconstruction technique. This report was created using voxapp report generation technology. CONTRAST: Oral contrast was administered. RADIATION DOSE: CTDIvol = 8.33 mGy, DLP = 418.26 mGy-cm COMPARISON: Contrast-enhanced CT scan abdomen and pelvis done at 0408 hours. FINDINGS: LOWER THORAX: Unremarkable. Lung bases are clear. No cardiomegaly. No significant pericardial effusion. ABDOMEN: LIVER: Unremarkable. Homogeneous. GALLBLADDER AND BILE DUCTS: Unremarkable. No calcified gallstones. No gallbladder distention or wall edema. No intra- or extrahepatic biliary ductal dilation. PANCREAS: Unremarkable. No focal cystic mass. SPLEEN: Unremarkable. Normal size without focal cystic or solid mass. ADRENALS: Unremarkable. No nodules. KIDNEYS AND URETERS: Unremarkable. Normal renal size and position. No hydronephrosis. STOMACH AND BOWEL: There is persistent distention of some loops of ileum with diameter measuring up to 4.2 cm. There is persistent fecal-like material in a segment of mid to distal ileum within the mid pelvis, now seen on axial images 99-116, which increases the index of suspicion for low-grade partial obstruction, although there is no clear demonstration of a single discrete transition point. Localized ileus would also remain a consideration. Previously noted sites of mild small bowel mural thickening are not appreciated on current study, possibly due to lack of IV contrast. There is probably some mural thickening in the distal ileum. PELVIS: APPENDIX: The appendix is seen on axial images 70-87 and is mildly prominent with a diameter ranging up to 9 mm. There is apparent air within segments of the appendix and there is no adjacent fat infiltration. Acute appendicitis is thought to be unlikely. BLADDER: Unremarkable. REPRODUCTIVE: Unremarkable as visualized. No mass. ABDOMEN and PELVIS: INTRAPERITONEAL SPACE: There is a small amount of free fluid in the posterior cul-de-sac of the pelvis, nonspecific finding. No free air. BONES/JOINTS: Unremarkable. No suspicious lytic or blastic abnormality. SOFT TISSUES: There is an umbilical hernia which contains fat. VASCULATURE: Unremarkable. Abdominal aorta is non-dilated. LYMPH NODES: Unremarkable. No enlarged lymph nodes. CT/Abdomen/Pel W ORAL Cont Only IMPRESSION: 1. Persistent distention of small bowel loops. Persistent area of fecal-like material in a segment of ileum increases suspicion for a low-grade mechanical obstruction, although no discrete transition point is identified. Focal ileus due to inflammation would remain a consideration.. Oral contrast has not progressed to this level and continued follow-up might be useful. 2. Appendix is not significantly changed in appearance. Acute appendicitis is thought to be unlikely. Electronically Signed: Vikram Kan MD at 8:01 EST ,
[2022-03-26] MEDS: Ketorolac 30 MG/ML Syringe IV (05:44)
--- NOTE | 2022-03-26 08:24 | HP.PCM.HOS_ITS ---
HPI - General General Date of Admission: 03/26/22 Date of Service: 03/26/22 Chief Complaint: Abdominal pain HPI Narrative VANESSA DUENAS, is a 26 F who presented to the emergency department was coming hospital on 03/26/2022 with right lower quadrant abdominal pain Patient indicates the pain started at around 9 PM last night. She was able to go to sleep and slept for a few hours however woke up with worsening pain in the right lower quadrant. She states the pain is severe and associated with nausea and vomiting. She has been given morphine since arrival to the emergency department and now rates her pain at 1 out of 10 however it was significantly worse prior to receiving pain medication. He states she is passing flatus and having bowel movements. No blood in her stool or emesis. No melena. She had no fever or chills and was feeling fine up until last evening. Urination has been normal and no dysuria. Pain had not migrated at all and has since consistently been in the right lower quadrant. Her only previous surgery is a and a transvaginal surgery for redundant uterus. was in 2019. Patient does indicate she had a similar episode to this when she was about 16 years old and spent 3 days at [facility]. Etiology unclear. Upon presentation her temperature was 98.8, heart rate was 125, blood pressure was 153/97, respiratory was 16, pulse ox was 100% on room air. Heart rate and blood pressure both improved and she has been medicated for pain. CBC showed a normal white count with a mildly elevated hemoglobin elevation at 15.2, platelets were normal. I suspect her erythrocytosis is can traction related to some dehydration. Her chemistry panel is normal other than a mild hype rchloremia with a metabolic acidosis related to this. Anion gap is normal. Renal function is normal. Her UA is unremarkable for infection. CT of her abdomen pelvis shows an enlarged but noninflamed appendix and acute appendicitis was felt to be unlikely. She does have dilation of the small bowel loops and a persistent area of feculent material in a segment of the ileum which is suggestive of a low-grade mechanical obstruction although a discrete transition point was not identified. Focal ileitis due to inflammation would be in the differential as well per radiology report. Case was discussed with Dr. Reid and he recommended a another CT with oral contrast to be done about 2 hours. We will go ahead and admit the patient with observation status placed on IV fluids, antiemetics, and medication for pain. General surgery was consulted. [facility] Medical History (Updated 03/26/22 @ 08:[address] Tiarra Goyal DO) FRANCOIS I (cervical intraepithelial neoplasia I) Uterus didelphys Home Medications Baraga-Linyah 0.25 mg-35 mcg tablet (norgestimate-ethinyl estradiol) See Rx Instructions .Route .COMPLEX #364 tabs 12/17/21 [Rx Last Taken Unknown] Allergy/AdvReac Type Severity Reaction Status Date / Time No Known Allergies Allergy Verified 12/03/19 15:53 Family History Grandmother CVA (cerebral vascular accident) Heart disease Grandfather Heart disease Skin cancer COPD (chronic obstructive pulmonary disease) Aunt CVA (cerebral vascular accident) Breast cancer Father Cancer Surgical History History of low transverse section Social History (Updated 03/26/22 @ 08:[address] Tiarra Goyal DO) household members: significant other housing: house number of children: 1 Smoking Status: Never smoker alcohol intake: never substance use type: does not use ROS Constitutional Constitutional: Denies anorexia, change in weight, chills, fatigue, fever(s), malaise, night sweats, weakness or other Eyes Eyes: Denies blurry vision, change in eye color, change in vision, discharge from eye(s), double vision, erythema, eye pain, loss of vision or other ENT HEENT: Denies abnormal hearing, dysphagia, ear pain, epistaxis, headache(s), hearing loss, nasal congestion, nasal discharge, post nasal drip, sinus pressure, sore throat or other Cardiovascular Cardiovascular: Denies chest pain, claudication, dyspnea on exertion, edema, lightheadedness, orthopnea, palpitations, paroxysmal nocturnal dyspnea, rapid heart rate, syncope or other Respiratory/Chest Respiratory/Chest: Denies cough, dyspnea, excessive phlegm production, hemoptysis, productive cough, shortness of breath at rest, shortness of breath with exertion, wheezing or other Gastrointestinal Gastrointestinal: Reports abdominal pain, nausea and vomiting; Denies coffee ground emesis, constipation, diarrhea, dyspepsia, hematemesis, hematochezia, loose stools, melena or other Genitourinary Genitourinary: Denies burning urination, difficulty urinating, dysuria, hematuria, nocturia, urinary frequency, urinary hesitancy, urinary incontinence, urinary urgency or other Musculoskeletal Musculoskeletal: Denies arthralgias, back pain, joint pain, joint stiffness, joint swelling, myalgias, neck pain or other Neurologic Neurologic: Denies abnormal gait, abnormal speech, confusion, disequilibrium, dizziness, focal weakness, headache(s), numbness, paresthesias, seizure-like activity, seizures, syncope, tingling, tremor(s) or other Psychiatric Psychiatric: Denies anxiety, depression, homicidal ideation, suicidal ideation or other Endocrine Endocrinology: Denies change in body appearance, cold intolerance, excessive sweating, heat intolerance, polydipsia, polyuria or other Hematologic/Lymphatic Hematologic/Lymphatic: Denies anemia, easy bleeding, easy bruising, lymphadenopathy or other Allergic/Immunologic Allergic/Immunologic: Denies rhinitis, hives, eczemia, asthma or other Vital Signs Vital Signs Vital Signs: 03/26/22 03:18 03/26/22 08:20 03/26/22 08:23 Temperature 98.8 F 98.3 F Temperature Source Temporal Oral Pulse Rate 125 H 96 Respiratory Rate 16 16 16 Blood Pressure 153/97 H 117/71 Blood Pressure Mean 115 86 Pulse Ox 100 99 Oxygen Delivery Method Room Air Room Air Weight Weight: 90 kg Body Mass Index (BMI) 34.0 Physical Exam Const alert, oriented x3, no apparent distress and well nourished Constitutional Narrative: Obese, young, white female, sitting up in bed, and mother at bedside, patient appears comfortable at this time, nontoxic General Appearance: cooperative HEENT normocephalic, head/scalp atraumatic, hearing grossly normal bilaterally and moist oral mucous membranes HEENT Narrative: Mallampati 2, no thrush, dentition is good Eyes PERRL, EOMs intact bilaterally and conjunctivae normal Eyes Narrative: No scleral icterus Neck no lymphadenopathy, supple, no JVD and no carotid bruits Neck Narrative: Trachea midline, no thyroid enlargement Resp normal respiratory effort, no retractions, no use of accessory muscles and clear to auscultation bilaterally Auscultation: Negative for rales, rhonchi or wheezes Cardio regular rate, regular rhythm, S1 normal heart sound, S2 normal heart sound, no murmurs, no rub, no gallops and no clicks GI normal to inspection, nondistended, normoactive bowel sounds, soft to palpation and non-distended GI Narrative: Mild tenderness right lower quadrant-patient states is much improved since she has had morphine however when this wears off to get significantly worse Palpation: tender RUQ Extremity no clubbing, cyanosis or edema Extremity Narrative: 2+ pedal pulses Skin no rashes or lesions noted, no wounds, skin turgor normal, no jaundice, no petechiae and no mottling Neuro oriented x3, CN's II-XII intact bilaterally, moves all extremities and no focal motor deficits Speech: speech normal Motor Exam: strength 5/5 throughout Psych affect normal Psych Narrative: Very pleasant, appropriately interactive Results Lab / Micro Data Attestation: I reviewed the patient's lab results. Result Diagrams: 03/26/22 03:30 03/26/22 03:30 Labs: Laboratory Results - last 24 hr 03/26/22 03:30: WBC 9.4, RBC 5.17, Hgb 15.2 H, Hct 45.9, MCV 88.8, MCH 29.4, MCHC 33.1, RDW Std Deviation 38.8, RDW Coeff of Marisa 11.9, Plt Count 370, MPV 10.1, Immature Gran % (Auto) 0.300, Neut % (Auto) 57.6, Lymph % (Auto) 33.0, [place] % (Auto) 8.0, Eos % (Auto) 0.6, Baso % (Auto) 0.5, Absolute Neuts (auto) 5. 4, Absolute Lymphs (auto) 3.10, Nucleated RBC % 0 03/26/22 03:30: Sodium 141, Potassium 3.6, Chloride 110 H, Carbon Dioxide 19.0 L , Anion Gap 12, BUN 10, Creatinine 0.92, Estim Creat Clear Calc 80.72, Est GFR (MDRD) Af Amer 96, Est GFR (MDRD) Non-Af 79, BUN/Creatinine Ratio 10.9, Glucose 96, Calcium 9.5 03/26/22 03:45: Urine Color Yellow, Urine Clarity Clear, Urine pH 6.0, Ur Specific [place] 1.025, Urine Protein 15 H, Urine Glucose (UA) Normal, Urine Ketones Negative, Urine Occult Blood Negative, Urine Nitrite Negative, Urine Bilirubin Negative, Urine Urobilinogen Normal, Ur Leukocyte Esterase 500 H, Urine RBC 0-5 SEEN, Urine WBC 0-5 SEEN, Ur Squamous Epith Cells 0-5 SEEN, Urine Bacteria 3+, Urine Mucus 0 SEEN, Urine Test Negative Radiology Impression Abdomen/Pelvis CT 03/26/22 03:20 IMPRESSION: 1. Dilatation of some loops of [id number] ileum along with areas of mild mural thickening in the distal ileum, including terminal ileum. Findings suggest an infectious or inflammatory enteritis with overlying ileus. Crohn''s disease would be a consideration. Significant mechanical bowel obstruction is thought to be unlikely. 2. Appendix is prominent in size but not definitively abnormal with diameter of 9 mm. There are no surrounding inflammatory changes and acute appendicitis is thought to be unlikely. The appendix is located in the far right lateral abdomen and it is centered at the level of the umbilicus. Suggest clinical correlation with special attention in this region. 3. Small amount of free fluid in the posterior cul-de-sac of the pelvis, nonspecific finding. 4. Umbilical hernia contains fat, but no bowel. Electronically Signed: Vikram Kan MD at 4:50 EST , Abdomen CT 03/26/22 05:04 IMPRESSION: 1. Persistent distention of small bowel loops. Persistent area of fecal-like material in a segment of ileum increases suspicion for a low-grade mechanical obstruction, although no discrete transition point is identified. Focal ileus due to inflammation would remain a consideration.. Oral contrast has not progressed to this level and continued follow-up might be useful. 2. Appendix is not significantly changed in appearance. Acute appendicitis is thought to be unlikely. Electronically Signed: Vikram Kan MD at 8:01 EST , Assessment & Plan Assessment/Plan (1) Right sided abdominal pain: PLAN: Plan Right-sided abdominal pain -Started last evening about 9:00 with associated nausea and vomiting -Patient with flatus and bowel movements -States she had something similar when she was about 16 years old and was in [facility] for about 3 days -Not require any surgical intervention -Initial CT showed dilation of some loops in the mid to distal ileum along with mild mural thickening in the distal ileum including the terminal ileum as well as a prominent sized appendix but without any surrounding inflammatory changes suggestive of acute appendicitis and a small amount of free fluid in the post erior cul-de-sac of the pelvis -Repeat CT of the pelvis with only oral contrast showed persistent distention of the small bowel loops and a persistent area of fecal like material in a segment of the ileum that increases suspicion for low-grade mechanical obstruction although no discrete transition point was identified and focal ileitis due to inflammation--> the oral contrast had not yet progressed to this level and continued follow-up was recommended, acute appendicitis was still felt to be unlikely -ED physician talked to Dr. Reid who is on-call for general surgery and he has recommended another follow-up CT with oral contrast in 2 hours -We will continue IV fluids with LR at 100 cc/h -Morphine for pain -As needed antiemetics -N.p.o. -Consult general surgery History of -Patient with low transverse for delivery in 2019 -No other intra-abdominal surgeries -Patient with history of transvaginal surgery for uterus didelphys DVT prophylaxis -Lovenox 40 daily CODE STATUS Full code Charges/Coding Visit Charges Inpatient E&M: 37387 Init Hosp L2
--- NOTE | 2022-03-26 08:30 | CT_ITS ---
STUDY: CT ABDOMEN AND PELVIS WITHOUT CONTRAST REASON FOR EXAM: Female, 26 years old. Right lower quadrant abdominal pain. RADIATION DOSAGE (If Supplied By Facility): CTDIvol = ( 8.92 ) mGy, DLP = ( 340.95 ) mGycm TECHNIQUE: Transaxial images were obtained from the dome of the diaphragm to the symphysis pubis without oral contrast, and without intravenous contrast. Sagittal and coronal images were reconstructed. Individualized dose optimization techniques were used for this CT. COMPARISON: Comparison is made with prior studies done earlier in the day. FINDINGS: The visualized lung bases are unremarkable. The visualized portions of the heart are within normal limits. Normal liver. Normal gallbladder and extrahepatic biliary system. Normal spleen. Normal pancreas. Normal bilateral adrenal glands. Normal right kidney. Normal left kidney. Normal visualized stomach. There are dilated loops of the small intestine with a non-distended colon consistent with a small bowel obstruction. The transition point is in the distal ileum. Normal colon. The appendix is visualized and appears normal. Normal abdominal aorta. Normal inferior vena cava. Normal retroperitoneum. Normal urinary bladder. Normal abdominal wall. Normal osseous structures. CT/Abdomen/Pelvis without Cont IMPRESSION: Findings suggestive of a small bowel obstruction with the transition point in the distal ileum. Electronically Signed: Jonatan Cotto MD at 11:29 [facility] ,
--- NOTE | 2022-03-26 12:47 | EX.PCM.CON.S ---
Assessment & Plan Assessment/Plan (1) Small bowel obstruction: PLAN: Exploratory laparoscopy with lysis of adhesions possible open possible appendectomy. I have counseled the patient as to the risks of the procedure, including but not limited to: infection, bleeding, injury to any blood vessels/nerves, injury to any bowel/bladder, injury to any intraabdominal organs such as the liver/spleen, perforation of the GI tract, intraabdominal abscess/bleeding, incisional hernias, injury to the common bile duct/biliary ducts, injury to the spermatic cord/vessels/testicles, recurrence of hernia(s), complications of anesthesia, etc. The patient verbalizes understanding. HPI Consult Data Date of Consult: 03/26/22 HPI Narrative HPI Narrative: VANESSA DUENAS, is a 26 F who presented to the emergency department was [facility] on 03/26/2022 with right lower quadrant abdominal pain? Patient indicates the pain started at around 9 PM last night.? She was able to go to sleep and slept for a few hours however woke up with worsening pain in the right lower quadrant.? She states the pain is severe and associated with nausea and vomiting.? She has been given morphine since arrival to the emergency department and now rates her pain at 1 out of 10 however it was significantly worse prior to receiving pain medication.? He states she is passing flatus and having bowel movements.? No blood in her stool or emesis.? No melena.? She had no fever or chills and was feeling fine up until last evening.? Urination has been normal and no dysuria.? Pain had not migrated at all and has since consistently been in the right lower quadrant.? Her only previous surgery is a and a transvaginal surgery for redundant uterus.? was in 2019.? Patient does indicate she had a similar episode to this when she was about 16 years old and spent 3 days at [facility].? Etiology unclear. Upon presentation her temperature was 98.8, heart rate was 125, blood pressure was 153/97, respiratory was 16, pulse ox was 100% on room air.? Heart rate and blood pressure both improved and she has been medicated for pain.? CBC showed a normal white count with a mildly elevated hemoglobin elevation at 15.2, platelets were normal.? I suspect her erythrocytosis is can traction related to some dehydration.? Her chemistry panel is normal other than a mild hyperchloremia with a metabolic acidosis related to this.? Anion gap is normal.? Renal function is normal.? Her UA is unremarkable for infection.? CT of her abdomen pelvis shows an enlarged but noninflamed appendix and acute appendicitis was felt to be unlikely.? She does have dilation of the small bowel loops and a persistent area of feculent material in a segment of the ileum which is suggestive of a low-grade mechanical obstruction although a discrete transition point was not identified.? Focal ileitis due to inflammation would be in the differential as well per radiology report. I reviewed the case with the radiologist. He feels the findings are suggestive of small bowel obstruction with a transition point in the distal ileum. ON LICENSE OF [facility] Medical History FRANCOIS I (cervical intraepithelial neoplasia I) Uterus didelphys Home Medications [place]-Linyah 0.25 mg-35 mcg tablet (norgestimate-ethinyl estradiol) See Rx Instructions .Route .COMPLEX #364 tabs 12/17/21 [Rx Last Taken Unknown] Allergy/AdvReac Type Severity Reaction Status Date / Time No Known Allergies Allergy Verified 12/03/19 15:53 Family History Grandmother CVA (cerebral vascular accident) Heart disease Grandfather Heart disease Skin cancer COPD (chronic obstructive pulmonary disease) Aunt CVA (cerebral vascular accident) Breast cancer Father Cancer Surgical History History of low transverse section Social History (Updated 03/26/22 @ 08:[address] Tiarra Goyal DO) household members: significant other housing: house number of children: 1 Smoking Status: Never smoker alcohol intake: never substance use type: does not use ROS Constitutional Constitutional: Denies chills or fever(s) Cardiovascular Cardiovascular: Denies chest pain Respiratory/Chest Respiratory/Chest: Denies cough or dyspnea Gastrointestinal Gastrointestinal: Reports abdominal pain, bloating, nausea and vomiting; Denies diarrhea Genitourinary Genitourinary: Denies change in urinary stream, difficulty urinating or dysuria Physical Exam Const alert General Appearance: ill appearing Positive for acutely HEENT normocephalic and head/scalp atraumatic Eyes PERRL and EOMs intact bilaterally Resp clear to auscultation bilaterally Cardio Rate: regular rate and tachycardic GI Inspection: abdominal distention Palpation: tender and guarding Extremity no calf tenderness Lab / Micro Data Result Diagrams: 03/26/22 03:30 03/26/22 03:30 Labs: Laboratory Results - last 24 hr 03/26/22 03:30: WBC 9.4, RBC 5.17, Hgb 15.2 H, Hct 45.9, MCV 88.8, MCH 29.4, MCHC 33.1, RDW Std Deviation 38.8, RDW Coeff of Marisa 11.9, Plt Count 370, MPV 10.1, Immature Gran % (Auto) 0.300, Neut % (Auto) 57.6, Lymph % (Auto) 33.0, [place] % (Auto) 8.0, Eos % (Auto) 0.6, Baso % (Auto) 0.5, Absolute Neuts (auto) 5.4, Absolute Lymphs (auto) 3.10, Nucleated RBC % 0 03/26/22 03:30: Sodium 141, Potassium 3.6, Chloride 110 H, Carbon Dioxide 19.0 L, Anion Gap 12, BUN 10, Creatinine 0.92, Estim Creat Clear Calc 80.72, Est GFR (MDRD) Af Amer 96, Est GFR (MDRD) Non-Af 79, BUN/Creatinine Ratio 10.9, Glucose 96, Calcium 9.5 03/26/22 03:45: Urine Color Yellow, Urine Clarity Clear, Urine pH 6.0, Ur Specific [place] 1.025, Urine Protein 15 H, Urine Glucose (UA) Normal, Urine Ketones Negative, Urine Occult Blood Negative, Urine Nitrite Negative, Urine Bilirubin Negative, Urine Urobilinogen Normal, Ur Leukocyte Esterase 500 H, Urine RBC 0-5 SEEN, Urine WBC 0-5 SEEN, Ur Squamous Epith Cells 0-5 SEEN, Urine Bacteria 3+, Urine Mucus 0 SEEN, Urine Test Negative Radiology Impression Abdomen/Pelvis CT 03/26/22 03:20 IMPRESSION: 1. Dilatation of some loops of [id number] ileum along with areas of mild mural thickening in the distal ileum, including terminal ileum. Findings suggest an infectious or inflammatory enteritis with overlying ileus. Crohn''s disease would be a consideration. Significant mechanical bowel obstruction is thought to be unlikely. 2. Appendix is prominent in size but not definitively abnormal with diameter of 9 mm. There are no surrounding inflammatory changes and acute appendicitis is thought to be unlikely. The appendix is located in the far right lateral abdomen and it is centered at the level of the umbilicus. Suggest clinical correlation with special attention in this region. 3. Small amount of free fluid in the posterior cul-de-sac of the pelvis, nonspecific finding. 4. Umbilical hernia contains fat, but no bowel. Electronically Signed: Vikram Kan MD at 4:50 EST , Abdomen CT 03/26/22 05:04 IMPRESSION: 1. Persistent distention of small bowel loops. Persistent area of fecal-like material in a segment of ileum increases suspicion for a low-grade mechanical obstruction, although no discrete transition point is identified. Focal ileus due to inflammation would remain a consideration.. Oral contrast has not progressed to this level and continued follow-up might be useful. 2. Appendix is not significantly changed in appearance. Acute appendicitis is thought to be unlikely. Electronically Signed: Vikram Kan MD at 8:01 EST , Abdomen/Pelvis CT 03/26/22 08:30 IMPRESSION: Findings suggestive of a small bowel obstruction with the transition point in the distal ileum. Electronically Signed: Jonatan Cotto MD at 11:29 EST ,
[2022-03-26] MEDS: 0.9% Normal Saline 1,000 ML 15 ML IV (13:40)
[2022-03-26] MEDS: Bupivacaine 0.5% PF 10 ML VIAL (14:12)
--- NOTE | 2022-03-26 14:30 | APP_PTH ---
PATIENT: VANESSA SHELTON LOC: [id number] U#:[id number] AGE/SX: 26/F [place] [facility] [place]: Dr. Orion Reid MD : 1995 BED: 1 DIS: 03/28/2022 SPEC #: [id number] RECD: 03/26/22 16:50 STATUS: REKHA ROSSANA #: [id number] OSCAR: 03/26/22 14:[address]: Orion Reid DEPT: SURGICAL PATHOLOGY RECD BY: Ava Perez ENTERED: 03/27/22 09:01 SP TYPE: APPENDIX OTHR DR: DO Dr. Anu Doe MD Tissues: A - Appendix, NOS B - MECKEL'S DIVERTICULUM Procedures: Surgery Specimen Level III HEADER OPERATION: Diagnostic laparoscopy, lysis of adhesions, laparoscopic appendectomy PRE-OP DIAGNOSIS: Small bowel obstruction, Meckel?s diverticulum TISSUE SUBMITTED: A ? Appendix, B ? Meckel?s diverticulum MICROSCOPIC DIAGNOSIS A. Appendix, appendectomy: Appendix, no pathologic diagnosis. One benign periappendiceal lymph node. See comment. B. Meckel?s diverticulum, resection: A small segment of bowel, clinically Meckel?s diverticulum. SJ:rg 03/28/2022 COMMENT A. The entire appendix is examined. MICROSCOPIC DESCRIPTION Slides are reviewed. GROSS DESCRIPTION A - Received in fixative is one container labeled with the patient's name and designated appendix. The specimen consists of an appendix measuring 8 cm in length and up to 0.6 cm in diameter. The attached periappendiceal adipose tissue measures up to 1.5 cm in width. No obvious perforation is identified. The lumen is filled with fecal material. No fecalith is identified. Section of periappendiceal adipose tissue reveal a nodule, a possible lymph node measuring 0.7 cm in greatest dimension. F[employer] sections are submitted in five cassettes as follows: 1 - tip of appendix and proximal end, 2-4 - rest of the appendix, 5 - fat and bisected lymph node. The entire appendix is submitted. B - Received in fixative is one container labeled with the patient's name and designated Meckel?s diverticulum. Received is a segment of small bowel measuring 2 cm in length and 5 cm in diameter. Both resection margins are stapled. The lumen contains hemorrhagic material. No mucosal lesion I identified. F[employer] sections are submitted in four cassettes as follows: 1 - one margin, 2 - other margin, 3 & 4 - middle portion. / TESSIE:dean 03/27/2022 TC:5 CPT: 83761 x2
--- NOTE | 2022-03-26 15:43 | PCM.OPRPT ---
Problems Associated Problem List Diagnoses (1) Small bowel obstruction: (2) Right sided abdominal pain: (3) Meckel diverticulum: Report of Operation Date of Procedure: 03/26/22 Pre-Operative Diagnosis: Bowel obstruction, right lower quadrant abdominal pain Post-Operative Diagnosis: Same plus Meckel's diverticulum Surgery/Procedure Performed:: Resection of Meckel's diverticulum, Incidental laparoscopic appendectomy Surgeon: Orion Reid architecture intern: Leidy Vuong Type of Anesthesia: General Anesthesiologist: Shyam Lopez Specimen's removed: 1. Meckel's diverticulum 2. Appendix Estimated Blood Loss (mL): < 50 cc Description of Procedure: Patient was brought in to the operating room. Placed in supine position. Under excellent general anesthetic Martinez catheter was placed the abdomen was sterilely prepped and draped in usual fashion. Local was injected above the umbilicus dissection was carried down to the fascia the fascia grasped with a Cindy varies needle was placed inside the abdomen the abdomen was insufflated to 15 torr. #5 trocar was placed without difficulty. Suprapubic #5 trocars placed in the left lower quadrant #5 trocars placed. The patient had some adhesions to the umbilical area these were taken down with the Enseal. The patient was placed in the headdown and rotated to the left position. I irrigated out some clear fluid in the pelvis there were no adhesions down here identified the cecum and the appendix which looked normal identified the terminal ileum it went down and was attached to the sidewall of the pelvis area and then came back up without any signs of kinking or narrowing. As I ran the small bowel I came into contact with a Meckel's diverticulum with the tissue in the surrounding area slightly edematous and red. I ran proximal to this all the other small bowel look normal there were no adhesions identified. It was clear that the Meckel's diverticulum was the source of her discomfort. I dissected the mesentery of the Meckel's with the Enseal and I was hoping I was going to be able to laparoscopically remove this. But the base of this Meckel's diverticulum was just too wide and I thought that if I took a stapler across it it was going to narrow the lumen so I made a determination that I was going to have to do an open resection of this. At this point I thought it was best that I remove the appendix since I was going to remove her Meckel's diverticulum at the same time. Identified the appendix and came down on the mesoappendix with the Enseal and I transected the base of the appendix with a 45 linear cutter I used touch cautery at the base of the appendix stump for good hemostasis. I placed a specimen specimen bag and delivered through the umbilical port. I made a midline incision from the umbilical port down to the umbilicus. I entered the abdomen without difficulty I placed a wound protector in the abdomen and I brought the Meckel's diverticulum up. I made a mesenteric window in the proximal distal end of the Meckel's diverticulum I transected the small bowel with a 55 linear cutter and came across the mesentery with the Enseal for good hemostasis. I opened up the 2 ends of the small bowel placed a 55 linear cutter through the enterotomy created and created a [id number] functional end-to-end anastomosis. I closed the enterotomy with a 60 stapler. I placed a 3-0 GI silk in the crotch area. Patient had excellent blood supply and in fact I had to do a running stitch of 3-0 GI silk on the anastomosis for good hemostasis. Once this was done I closed the mesenteric rent with a 3-0 GI silk. Once this was achieved I placed the specimen back into the abdomen. I reinflated the abdomen I looked at the base of the appendix it was still oozing slightly so I did more touch prep with cautery and got good hemostasis. I reinspected my anastomosis it looked good and had good hemostasis. I removed all the trocars under direct visualization good epistasis was noted. The subcu was brought together with 2-0 Vicryl deep dermals were brought together with 3-0 Vicryl skin incisions were then closed with 4-0 Monocryl. Steri-Strips were applied sterile dressings were applied and the patient tolerated the procedure well. Admit VTE Documentation VTE Present on Admission: No VTE Mechan Device Prophylaxis: SCD's VTE Pharm Prophylaxis ordered?: No Reason prophylaxis not ordered:: Treatment Not Indicated
[2022-03-26] MEDS: Lactated Ringers 1,000 ML 15 ML IV (16:20)
[2022-03-26] MEDS: 0.9% Normal Saline 1,000 ML 100 ML IV (20:12)
[2022-03-26] MEDS: Enoxaparin 40 MG/0.4 ML Syringe SC (20:16)
[2022-03-26] MEDS: Morphine 2 MG/ML Syringe IV (20:17)
[2022-03-27] VITALS (7 sets, daily range): BP systolic 119–127; BP diastolic 74–89; PULSE 101–105; RESP 16–18; TEMP 36.6–37.3; O2SAT 97–100
[2022-03-27] MEDS: Morphine 2 MG/ML Syringe IV ×5 (02:41→19:43)
[2022-03-27] MEDS: 0.9% Saline Lock 10 ML Syringe IV (02:42)
[2022-03-27] MEDS: 0.9% Normal Saline 1,000 ML 100 ML IV ×3 (04:59→23:00)
[2022-03-27 05:31] LABS: Absolute Lymphocyte Count 2.37 X10^3/uL (0.83-4.51); Absolute Neutrophil Count 8.8 X10^3/uL (2.0-7.7); Basophil# 0.03 X10^3/uL; Basophil% 0.2 % (0-1); Eosinophil# 0.01 X10^3/uL; Eosinophils% 0.1 % (0-5); Hematocrit 39.8 % (37-47); Hemoglobin 13.3 g/dL (12.0-15.0); Lymphocyte # 2.37 X10^3/ul (0.83-4.51); Lymphocyte % 19.3 % (19-41); Mean Corp Hgb Conc 33.4 g/dL (32-36); Mean Corpuscular Volume 89.8 fL (81-99); Mean Platelet Vol. 10.2 fl (6.2-12.0); Monocyte# 1.06 X10^3/uL; Monocyte% 8.6 % (0-10); NRBC Flagged by Analyzer 0 % (0-5); Neutrophil # 8.79 X10^3/uL (2.7-7.7); Neutrophil % 71.5 % (47-70); Platelet Count 322 K/mm3 (150-450); RBC Distribution Width CV 11.9 % (11.6-14.6); RBC Distribution Width SD 39.1 fl (35.1-43.9); Red Blood Count 4.43 M/mm3 (4.2-5.4); White Blood Count 12.3 K/mm3 (4.4-11.0)
--- NOTE | 2022-03-27 07:53 | PCM.PN.SRG ---
Subjective Subjective patient feelikng eddie Objective Data Objective Data Vital Signs: Vital Signs Temp Pulse Resp BP Pulse Ox O2 Del Method 97.9 F 103 H 16 123/80 H 97 Room Air 03/27/22 05:06 03/27/22 05:06 03/27/22 05:06 03/27/22 05:06 03/27/22 05:06 03/27/22 05:06 Oxygen Delivery Method Room Air Weight: 90 kg Body Mass Index (BMI) 34.0 Intake & Output: Intake and Output for Last 24 Hours 03/25/22 03/26/22 03/27/22 23:59 23:59 23:59 Intake Total 2196.75 / 2196.75 878.33 / 878.33 Output Total 300 / 300 600 / 600 Balance 1896.75 / 1896.75 278.33 / 278.33 Lab / Micro Data Result Diagrams: 03/27/22 05:25 03/26/22 03:30 Labs: Laboratory Results - last 24 hr 03/27/22 05:25: WBC 12.3 H, RBC 4.43, Hgb 13.3, Hct 39.8, MCV 89.8, MCH 30.0, MCHC 33.4, RDW Std Deviation 39.1, RDW Coeff of Marisa 11.9, Plt Count 322, MPV 10.2, Immature Gran % (Auto) 0.300, Neut % (Auto) 71.5 H, Lymph % (Auto) 19.3, [place] % (Auto) 8.6, Eos % (Auto) 0.1, Baso % (Auto) 0.2, Absolute Neuts (auto) 8.8 H, Absolute Lymphs (auto) 2.37, Nucleated RBC % 0 03/27/22 05:25: Sodium Cancelled, Potassium Cancelled, Chloride Cancelled, Carbon Dioxide Cancelled, Anion Gap Cancelled, BUN Cancelled, Creatinine Cancelled, Estim Creat Clear Calc Cancelled, Est GFR (MDRD) Af Amer Cancelled, Est GFR (MDRD) Non-Af Cancelled, BUN/Creatinine Ratio Cancelled, Glucose Cancelled, Calcium Cancelled, Magnesium Cancelled, Total Bilirubin Cancelled, AST Cancelled, ALT Cancelled, Alkaline Phosphatase Cancelled, Total Protein Cancelled, Albumin Cancelled, Globulin Cancelled, Albumin/Globulin Ratio Cancelled, TSH Cancelled 03/27/22 05:25: Phosphorus Cancelled Radiography Diagnostic Testing: Radiology Impression Abdomen CT 03/26/22 05:04 IMPRESSION: 1. Persistent distention of small bowel loops. Persistent area of fecal-like material in a segment of ileum increases suspicion for a low-grade mechanical obstruction, although no discrete transition point is identified. Focal ileus due to inflammation would remain a consideration.. Oral contrast has not progressed to this level and continued follow-up might be useful. 2. Appendix is not significantly changed in appearance. Acute appendicitis is thought to be unlikely. Electronically Signed: Vikram Kan MD at 8:01 EST , Abdomen/Pelvis CT 03/26/22 08:30 IMPRESSION: Findings suggestive of a small bowel obstruction with the transition point in the distal ileum. Electronically Signed: Jonatan Cotto MD at 11:29 EST ,
[2022-03-27 08:03] LABS: ALB/GLOB Ratio 0.8 RATIO (0.9-2.4); AST(SGOT) 18 U/L (15-37); Alanine Aminotransfer ALT/SGPT 19 U/L (13-56); Alkaline Phosphatase 54 U/L (45-117); Anion Gap 7 (5-15); BUN 5 mg/dL (7-18); BUN/Creat Ratio 6.6 RATIO (10-20); Chloride 110 mmol/L (98-107); Creatinine, Serum 0.76 mg/dL (0.55-1.02); EST Glomerular Filtration Rate 99 mL/min (>60); Est Glom Filt Rate - Afr Amer 119 mL/min (>60); Estimated Creatinine Clearance 97.71 ml/min; Globulin 3.8 g/dL (2.2-4.2); Glucose 106 mg/dL (74-106); Phosphorus 2.3 mg/dL (2.5-4.9); Potassium 3.9 mmol/L (3.5-5.1); Protein, Total 6.8 g/dL (6.4-8.2); Sodium Level 140 mmol/L (136-145); Thyroid Stim Hormone (TSH) 2.04 uIU/mL (0.358-3.74)
[2022-03-27] MEDS: Senna/Docusate Sodium 1 Tablet 2 TABLET PO ×2 (09:33→19:43)
[2022-03-27] MEDS: Enoxaparin 40 MG/0.4 ML Syringe SC (09:36)
--- NOTE | 2022-03-27 14:15 | CASEMGMT ---
TIFFANIE FULLER MOTION PICTURE DIRECTOR CM to room to meet with patient for initial transition planning/care coordination assessment. TIFFANIE FULLER introduced self and role at [facility].? Pt voices understanding and consents to assessment at this time.? Pt resting in bed in no distress at this time.?Aunt @ bedside and pt agreeable to her being present during assess. Pt is A/O at this time and answers all questions appropriately.?? Care providers, pharmacy, and demographics verified/updated at this time. PCP: Anu Biggs Specialists: Pinky-WIRE MACHINE OPERATOR Preferred Pharmacy: [facility] Retail Insurance: MMO Prescription Benefit:? Yes Living Will/HPOA:? Pt does not currently have LW/HCPOA LNOK: parents. Mom-Sabrina Minor. Sig other/Orion Living Arrangements: Lives w/sig other, Orion, and their 2-yr-old dtr. Independent. Transportation: Pt states drives self and states no transportation concerns at this time.? Orion also drives. DME: ? Denies using any DME and denies needs.? HHC/SNF: No hx of either. No needs identified. Pt wishes to return home and states has no concerns with going home at time of discharge.? CM to follow for any discharge planning/needs.? Pt voices no concerns/needs at this time.? Advised pt to ask for CM if any questions/concerns/needs arise.? Voices understanding. PLAN: ?Home Eda SRIVASTAVA RN, CM
--- NOTE | 2022-03-27 16:14 | PN.SURG_ITS ---
Subjective Subjective No flatus as of yet. Objective Data Objective Data Abdomen is soft appropriately tender and incision Vital Signs: Vital Signs Temp Pulse Resp BP Pulse Ox O2 Del Method 98.9 F 102 H 16 119/74 98 Room Air 03/27/22 15:39 03/27/22 15:39 03/27/22 15:39 03/27/22 15:39 03/27/22 15:39 03/27/22 15:39 Oxygen Delivery Method Room Air Weight: 198 lb 6.656 oz Body Mass Index (BMI) 34.0 Intake & Output: Intake and Output for Last 24 Hours 03/25/22 03/26/22 03/27/22 23:59 23:59 23:59 Intake Total 2196.75 / 2196.75 2370.00 / 2370.00 Output Total 300 / 300 600 / 600 Balance 1896.75 / 1896.75 1770.00 / 1770.00 Lab / Micro Data Result Diagrams: 03/27/22 05:25 03/27/22 06:50 Labs: Laboratory Results - last 24 hr 03/27/22 05:25: WBC 12.3 H, RBC 4.43, Hgb 13.3, Hct 39.8, MCV 89.8, MCH 30.0, MCHC 33.4, RDW Std Deviation 39.1, RDW Coeff of Marisa 11.9, Plt Count 322, MPV 10.2, Immature Gran % (Auto) 0.300, Neut % (Auto) 71.5 H, Lymph % (Auto) 19.3, [place] % (Auto) 8.6, Eos % (Auto) 0.1, Baso % (Auto) 0.2, Absolute Neuts (auto) 8.8 H, Absolute Lymphs (auto) 2.37, Nucleated RBC % 0 03/27/22 05:25: Sodium Cancelled, Potassium Cancelled, Chloride Cancelled, Carbon Dioxide Cancelled, Anion Gap Cancelled, BUN Cancelled, Creatinine Cancelled, Estim Creat Clear Calc Cancelled, Est GFR (MDRD) Af Amer Cancelled, Est GFR (MDRD) Non-Af Cancelled, BUN/Creatinine Ratio Cancelled, Glucose Cancelled, Calcium Cancelled, Magnesium Cancelled, Total Bilirubin Cancelled, AST Cancelled, ALT Cancelled, Alkaline Phosphatase Cancelled, Total Protein Cancelled, Albumin Cancelled, Globulin Cancelled, Albumin/Globulin Ratio Cance lled, TSH Cancelled 03/27/22 05:25: Phosphorus Cancelled 03/27/22 06:50: Sodium 140, Potassium 3.9, Chloride 110 H, Carbon Dioxide 23.0, Anion Gap 7, BUN 5 L, Creatinine 0.76, Estim Creat Clear Calc 97.71, Est GFR (MDRD) Af Amer 119, Est GFR (MDRD) Non-Af 99, BUN/Creatinine Ratio 6.6 L, Glucose 106, Calcium 8.0 L, Phosphorus 2.3 L, Magnesium 2.0, Total Bilirubin 0.30, AST 18, ALT 19, Alkaline Phosphatase 54, Total Protein 6.8, Albumin 3.0 L, Globulin 3.8, Albumin/Globulin Ratio 0.8 L, TSH 2.04 Micro: Microbiology 03/26/22 15:48 Fluid - Paracentesis (Abd) Gram Stain - Final 03/26/22 15:48 Fluid - Paracentesis (Abd) Body Fluid Culture - Preliminary No growth-Final to follow 03/26/22 03:45 Urine, Clean Catch Urine Culture - Preliminary GNR lactose soft sugar operator head Assessment & Plan Assessment/Plan (1) Meckel diverticulum: PLAN: Patient not ready for discharge as of yet. Await GI function.
--- NOTE | 2022-03-27 16:19 | PN.HOSP_ITS ---
Reason for Visit Reason for Visit: Diagnoses Unspecified intestinal obstruction, unspecified as to partial versus complete o bstruction (03/26/22) Meckel's diverticulum (displaced) (hypertrophic) (03/26/22) Unspecified abdominal pain (03/26/22) Subjective Subjective Patient was taken to the OR yesterday for bowel obstruction and right lower quadrant abdominal pain. She was found to have a bowel obstruction plus a Meckel's diverticulum appendectomy was performed at time as well. She has not had no return of bowel function as of yet and is passing no flatus. Having some belching but no nausea or vomiting. Objective Data Objective Data Vital Signs: Vital Signs Temp Pulse Resp BP Pulse Ox O2 Del Method 98.9 F 102 H 16 119/74 98 Room Air 03/27/22 15:39 03/27/22 15:39 03/27/22 15:39 03/27/22 15:39 03/27/22 15:39 03/27/22 15:39 Oxygen Delivery Method Room Air Weight: 90 kg Body Mass Index (BMI) 34.0 Intake & Output: Intake and Output for Last 24 Hours 03/25/22 03/26/22 03/27/22 23:59 23:59 23:59 Intake Total 2196.75 / 2196.75 2370.00 / 2370.00 Output Total 300 / 300 600 / 600 Balance 1896.75 / 1896.75 1770.00 / 1770.00 Lab / Micro Data Result Diagrams: 03/27/22 05:25 03/27/22 06:50 Labs: Laboratory Results - last 24 hr 03/27/22 05:25: WBC 12.3 H, RBC 4.43, Hgb 13.3, Hct 39.8, MCV 89.8, MCH 30.0, MC HC 33.4, RDW Std Deviation 39.1, RDW Coeff of Marisa 11.9, Plt Count 322, MPV 10.2, Immature Gran % (Auto) 0.300, Neut % (Auto) 71.5 H, Lymph % (Auto) 19.3, [place] % (Auto) 8.6, Eos % (Auto) 0.1, Baso % (Auto) 0.2, Absolute Neuts (auto) 8.8 H, Absolute Lymphs (auto) 2.37, Nucleated RBC % 0 03/27/22 05:25: Sodium Cancelled, Potassium Cancelled, Chloride Cancelled, Carbon Dioxide Cancelled, Anion Gap Cancelled, BUN Cancelled, Creatinine Cancelled, Estim Creat Clear Calc Cancelled, Est GFR (MDRD) Af Amer Cancelled, Est GFR (MDRD) Non-Af Cancelled, BUN/Creatinine Ratio Cancelled, Glucose Cancelled, Calcium Cancelled, Magnesium Cancelled, Total Bilirubin Cancelled, AST Cancelled, ALT Cancelled, Alkaline Phosphatase Cancelled, Total Protein Cancelled, Albumin Cancelled, Globulin Cancelled, Albumin/Globulin Ratio Cancelled, TSH Cancelled 03/27/22 05:25: Phosphorus Cancelled 03/27/22 06:50: Sodium 140, Potassium 3.9, Chloride 110 H, Carbon Dioxide 23.0, Anion Gap 7, BUN 5 L, Creatinine 0.76, Estim Creat Clear Calc 97.71, Est GFR (MDRD) Af Amer 119, Est GFR (MDRD) Non-Af 99, BUN/Creatinine Ratio 6.6 L, Glucose 106, Calcium 8.0 L, Phosphorus 2.3 L, Magnesium 2.0, Total Bilirubin 0.30, AST 18, ALT 19, Alkaline Phosphatase 54, Total Protein 6.8, Albumin 3.0 L, Globulin 3.8, Albumin/Globulin Ratio 0.8 L, TSH 2.04 Micro: Microbiology 03/26/22 15:48 Fluid - Paracentesis (Abd) Gram Stain - Final 03/26/22 15:48 Fluid - Paracentesis (Abd) Body Fluid Culture - Preliminary No growth-Final to follow 03/26/22 03:45 Urine, Clean Catch Urine Culture - Preliminary GNR lactose call center trainer Physical Exam Const alert, oriented x3, no apparent distress and well nourished Constitutional Narrative: Obese, young, white female, sitting up in a chair at the bedside, at bedside, patient appears slightly uncomfortable at the present time, nontoxic General Appearance: cooperative HEENT normocephalic, hearing grossly normal bilaterally and moist oral mucous membranes Resp normal respiratory effort, no retractions, no use of accessory muscles and clear to auscultation bilaterally Auscultation: Negative for rales, rhonchi or wheezes Cardio regular rate, regular rhythm, S1 normal heart sound, S2 normal heart sound, no murmurs, no rub, no gallops and no clicks GI soft to palpation GI Narrative: Mild diffuse tenderness, midline postoperative incision appears clean and dry with no drainage on the dressing, bowel sounds are hypoactive, no distention Extremity no clubbing, cyanosis or edema Extremity Narrative: 2+ pedal pulses Neuro oriented x3, moves all extremities and no focal motor deficits Speech: speech normal Psych affect normal Psych Narrative: Very pleasant, appropriately interactive Assessment & Plan Assessment/Plan (1) Right sided abdominal pain: PLAN: Plan Right-sided abdominal pain -Started Friday evening about 9:00 with associated nausea and vomiting -Patient with flatus and bowel movements -States she had something similar when she was about 16 years old and was in [facility] for about 3 days -Not require any surgical intervention -Taken to the OR on 03/26/2021 at which time bowel obstruction was identified and a bowel resection with resection of Meckel's diverticulum was performed as well as a incidental appendectomy -Postop day 1 -Await return of bowel function -We will continue IV fluids with LR at 100 cc/h -Morphine for pain -As needed antiemetics -N.p.o. -General surgery following-appreciate input History of -Patient with low transverse for delivery in 2019 -No other intra-abdominal surgeries -Patient with history of transvaginal surgery for uterus didelphys DVT prophylaxis -Lovenox 40 daily CODE STATUS Full code Charges/Coding Visit Charges Inpatient E&M: 11405 Subs Hosp L2
[2022-03-28 03:02] VITALS: BP 121/78; PULSE 90; RESP 16; TEMP 37.2; O2SAT 100
[2022-03-28 08:36] VITALS: BP 117/66; PULSE 103; RESP 16; TEMP 36.9; O2SAT 100
[2022-03-28 08:40] VITALS: RESP 18
[2022-03-28] MEDS: Enoxaparin 40 MG/0.4 ML Syringe SC (08:57)
[2022-03-28] MEDS: 0.9% Normal Saline 1,000 ML 100 ML IV (08:57)
[2022-03-28 09:15] VITALS: O2SAT 98
--- NOTE | 2022-03-28 10:50 | CASEMGMT ---
TIFFANIE FULLER Follow-up: Face to face with patient. Pt alert and denies any concerns or discharge needs at this time. Lny Bowen RN CM
[2022-03-28 14:28] VITALS: BP 118/77; PULSE 88; RESP 18; TEMP 36.9; O2SAT 98
--- NOTE | 2022-03-28 14:30 | PCM.DC.SUM ---
Providers Date of Admission: 03/26/22 Date of Discharge: 03/28/22 Primary Care Physician: Dr. Anu Biggs MD Consultations 03/26/22 18:48 Consult: General Surgery Routine Consulting Provider: Orion Reid Reason for Consult: Abdominal pain EMERGENT Consult: No Notified: Yes Date Notified: 03/26/22 Time Notified: 08:30 Method of Notification: ED Physician Initiated Reason For Visit: PARTIAL SBO Diagnosis Discharge Diagnosis (1) Right sided abdominal pain: Status: Acute Code(s): R10.9 - Unspecified abdominal pain Medications at Discharge Home Medications Shackelford-Linyah 0.25 mg-35 mcg tablet (norgestimate-ethinyl estradiol) See Rx Instructions .Route .COMPLEX #364 tabs 12/17/21 oxycodone 5 mg tablet 5 mg PO Q6H PRN pain 5 days #20 tabs 03/28/22 Hospital Course Operations - (Resection of Meckel's diverticulum and incidental laparoscopic appendectomy) Procedures None Summary of Care Provided Minutes Spent on Discharge: 36 Hospital Course: Fernanda Calles is a 26-year-old white female who presented to the emergency department at [facility] on 03/26/2022 with right lower quadrant abdominal pain. The patient indicated that it started about 9 PM the night prior to admission. She was able to go to sleep and slept for a few hours however she woke up with worsening pain in her right lower quadrant. She stated the pain was severe and associated with nausea and vomiting. She was given morphine in the emergency department and her pain dramatically improved. She had been passing flatus and having bowel movements. She denied any blood in her stool or emesis. She had no fever or chills and was feeling fine up until last evening. CT scan was done in the emergency department and showed an enlarged but not inflamed appendix and dilation of the small bowel loops with a persistent area of feculent material in the segment of the ileum which was suggestive of low-grade mechanical obstruction. She was evaluated by the general surgeon and he discussed the case with the radiologist and they both felt the findings were suggestive of small bowel obstruction with a transition point in the distal ileum so she was taken to the OR on 03/26/2022 at which time she had some small bowel resection as well as resection of a Meckel's diverticulum. She had a short-lived postoperative ileus with improving bowel function throughout the day on 03/27/2022. She was placed on clear liquids that evening and tolerated them well. We were able to advance her diet to a regular diet on 03/28/2022 and she tolerated this without any issues. She was able to be discharged home in stable condition on 03/28/2022. We did send her home with a short course of oxycodone for pain relief. She is to follow-up with Dr. Reid from surgery within the next week and her primary care physician in the next 2 weeks. Discharge diagnoses: Small bowel obstruction secondary to Meckel's diverticulum Right-sided abdominal pain History of Physical Exam Narrative Patient states she is having flatus and tolerating clear liquids without any difficulty. Hopeful that she will go home later today. Const alert, oriented x3, no apparent distress and well nourished Constitutional Narrative: Obese, young, white female, sitting up in bed, appears comfortable, watching television, patient appears comfortable, nontoxic General Appearance: cooperative, comfortable, well kempt and well developed Orientation / Consciousness: awake, oriented to person, oriented to place and oriented to time Exam Limitations: no limitations Nutritional Appearance: obese HEENT normocephalic, head/scalp atraumatic, hearing grossly normal bilaterally and moist oral mucous membranes Eyes PERRL, EOMs intact bilaterally and conjunctivae normal Eyes Narrative: No scleral icterus Neck no lymphadenopathy, supple, no JVD and no carotid bruits Neck Narrative: Trachea midline, no thyroid enlargement Resp normal respiratory effort, no retractions, no use of accessory muscles and clear to auscultation bilaterally Auscultation: Negative for rales, rhonchi or wheezes Cardio regular rate, regular rhythm, S1 normal heart sound, S2 normal heart sound, no murmurs, no rub, no gallops and no clicks GI GI Narrative: Mild diffuse tenderness, midline postoperative incision appears clean and dry with no significant drainage on the dressing, bowel sounds are normoactive, no distention Palpation: tender RUQ Extremity no clubbing, cyanosis or edema Extremity Narrative: 2+ pedal pulses Skin no rashes or lesions noted, no wounds, skin turgor normal, no jaundice, no petechiae and no mottling Neuro oriented x3, CN's II-XII intact bilaterally, moves all extremities and no focal motor deficits Speech: speech normal Motor Exam: strength 5/5 throughout Psych affect normal Psych Narrative: Very pleasant, appropriately interactive Weight / BMI Weight Weight: 90 kg Body Mass Index (BMI) 34.0 ABG / Lab / Microbiology Data Result Diagrams: 03/27/22 05:25 03/27/22 06:50 Microbiology: Microbiology 03/26/22 03:45 Urine, Clean Catch Urine Culture - Final Escherichia coli 03/26/22 15:48 Fluid - Paracentesis (Abd) Gram Stain - Final 03/26/22 15:48 Fluid - Paracentesis (Abd) Body Fluid Culture - Preliminary No growth-Final to follow Meaningful Use Info Meaningful Use Diagnoses (Choose all that apply): None applicable Discharge Plan Admission Admit Date/Time: 03/26/22 15:43 Primary Reason for Your Visit: Abdominal pain Attending Provider: Orion Reid Primary Care Provider: Anu Biggs Consulting Providers: Orion Reid Discharge Orders/Prescriptions Prescriptions: New oxycodone 5 mg tablet 5 mg PO Q6H PRN (Reason: pain) 5 Days Qty: 20 0RF Continued norgestimate-ethinyl estradiol [Shackelford-Linyah] 0.25-35 mg-mcg tablet See Rx Instructions .ROUTE .COMPLEX Qty: 364 0RF Dose Instruction: take 1 tablet by mouth once daily Rx Instructions: take 1 tablet by mouth once daily Referrals / Follow Up: Orion Reid MD [Med Staff - Active Staff] - Within 1 Week Anu Biggs MD [Primary Care Provider] - Within 2 Weeks Maria Dolores Summers PA-C [Med Staff - Adv Practice Prof] - Disposition Disposition (needs filled in before D/C Order can be placed): Home, Self Care Charges/Coding Visit Charges Inpatient E&M: 66796 Disch Hosp >30min
[2022-03-28 14:41] VITALS: RESP 18
--- NOTE | 2022-03-28 16:12 | DCINST_ITS ---
Discharge Instructions Procedure Appendectomy Diet Discharge Diet: Light diet - advance as tolerated (if you have questions about your diet instructions, please talk to you doctor.) Activity Discharge Activity: May Not Drive (for 3-5 days or while taking narcotic pain meds.) May shower in (days): 1 Dressing / Incision Call your doctor if your incision/area has: Continuous Slow Oozing, Sudden Increased Bleeding, Increased Pain/ Swelling, Increased Redness and Foul Smelling Discharge Call your doctor if you observe: Fever of 101 or Higher Suture Line Care: Avoid Pulling/Pushing and Avoid Pinching/Bending Additional Dressing/Incision Instructions:: Keep dressing clean and dry. Change or remove dressing in 2 days. Leave steri strips for 1 week. May protect with a gauze bandaid. Follow Up Care Please Follow Up With: Maria Dolores Summers PA-C When: Call office to schedule an appointment to be seen in 1 week. Test Results: Test results from this visit will be discussed in further detail at your follow- up appointment, if applicable. Discharge Plan Admission Admit Date/Time: 03/26/22 15:43 Primary Reason for Your Visit: Abdominal pain Attending Provider: Orion Reid Primary Care Provider: Anu Biggs Consulting Providers: Orion eRid Discharge Orders/Prescriptions Prescriptions: New oxycodone 5 mg tablet 5 mg PO Q6H PRN (Reason: pain) 5 Days Qty: 20 0RF Continued norgestimate-ethinyl estradiol [[place]-Liny[place]] 0.25-35 mg-mcg tablet See Rx Instructions .ROUTE .COMPLEX Qty: 364 0RF Dose Instruction: take 1 tablet by mouth once daily Rx Instructions: take 1 tablet by mouth once daily Referrals / Follow Up: Orion Reid MD [Med Staff - Active Staff] - Within 1 Week Anu Biggs MD [Primary Care Provider] - Within 2 Weeks Maria Dolores Summers PA-C [Med Staff - Adv Practice Prof] - Disposition Disposition (needs filled in before D/C Order can be placed): Home, Self Care
--- NOTE | 2022-03-28 16:12 | PCM.PN.SRG ---
Subjective Subjective Tolerating p.o. flatus is positive Objective Data Objective Data Abdomen soft dressing dry Vital Signs: Vital Signs Temp Pulse Resp BP Pulse Ox O2 Del Method 98.5 F 88 18 118/77 98 Room Air 03/28/22 14:28 03/28/22 14:28 03/28/22 14:41 03/28/22 14:28 03/28/22 14:28 03/28/22 14:41 Oxygen Delivery Method Room Air Weight: 198 lb 6.656 oz Body Mass Index (BMI) 34.0 Intake & Output: Intake and Output for Last 24 Hours 03/26/22 03/27/22 03/28/22 23:59 23:59 23:59 Intake Total 2196.75 / 2196.75 4030.00 / 4030.00 1895 / 1895 Output Total 300 / 300 1100 / 1100 500 / 500 Balance 1896.75 / 1896.75 2930.00 / 2930.00 1395 / 1395 Lab / Micro Data Result Diagrams: 03/27/22 05:25 03/27/22 06:50 Micro: Microbiology 03/26/22 03:45 Urine, Clean Catch Urine Culture - Final Escherichia coli 03/26/22 15:48 Fluid - Paracentesis (Abd) Gram Stain - Final 03/26/22 15:48 Fluid - Paracentesis (Abd) Body Fluid Culture - Preliminary No growth-Final to follow Assessment & Plan Assessment/Plan (1) Meckel diverticulum: PLAN: Patient is okay for discharge today.
--- NOTE | 2022-03-28 16:13 | PCM.DC.SUM ---
Providers Date of Admission: 03/26/22 Primary Care Physician: Dr. Anu Biggs MD Consultations 03/26/22 18:48 Consult: General Surgery Routine Consulting Provider: Orion Reid Reason for Consult: Abdominal pain EMERGENT Consult: No MD Notified: Yes Date Notified: 03/26/22 Time Notified: 08:30 Method of Notification: ED Physician Initiated Reason For Visit: PARTIAL SBO Diagnosis Discharge Diagnosis (1) Meckel diverticulum: Status: Acute Code(s): Q43.0 - Meckel's diverticulum (displaced) (hypertrophic) Plan: Patient is okay for discharge today. Medications at Discharge Home Medications [place]-Linyah 0.25 mg-35 mcg tablet (norgestimate-ethinyl estradiol) See Rx Instructions .Route .COMPLEX #364 tabs 12/17/21 oxycodone 5 mg tablet 5 mg PO Q6H PRN pain 5 days #20 tabs 03/28/22 Hospital Course Summary of Care Provided Hospital Course: 26-year-old female admitted to the hospital with questionable partial small bowel obstruction underwent exploratory laparoscopy was found to have a Meckel's diverticulum that was inflamed. She underwent excision of this as well as a laparoscopic appendectomy. Postoperatively she did well. She was tolerating p.o. Weight / BMI Weight Weight: 198 lb 6.656 oz Body Mass Index (BMI) 34.0 ABG / Lab / Microbiology Data Result Diagrams: 03/27/22 05:25 03/27/22 06:50 Microbiology: Microbiology 03/26/22 03:45 Urine, Clean Catch Urine Culture - Final Escherichia coli 03/26/22 15:48 Fluid - Paracentesis (Abd) Gram Stain - Final 03/26/22 15:48 Fluid - Paracentesis (Abd) Body Fluid Culture - Preliminary No growth-Final to follow D/C Instructions Discharge Diet: Light diet - advance as tolerated (if you have questions about your diet instructions, please talk to you doctor.) May shower in (days): 1 Call your doctor if your incision/area has: Continuous Slow Oozing, Sudden Increased Bleeding, Increased Pain/ Swelling, Increased Redness and Foul Smelling Discharge Call your doctor if you observe: Fever of 101 or Higher Suture Line Care: Avoid Pulling/Pushing and Avoid Pinching/Bending Additional Dressing/Incision Instructions: Keep dressing clean and dry. Change or remove dressing in 2 days. Leave steri strips for 1 week. May protect with a gauze bandaid. Please Follow Up With: Maria Dolores Summers PA-C When: Call office to schedule an appointment to be seen in 1 week. Meaningful Use Info Meaningful Use Diagnoses (Choose all that apply): None applicable Discharge Plan Admission Admit Date/Time: 03/26/22 15:43 Primary Reason for Your Visit: Abdominal pain Attending Provider: Orion Reid Primary Care Provider: Anu Biggs Consulting Providers: Orion Reid Discharge Orders/Prescriptions Prescriptions: New oxycodone 5 mg tablet 5 mg PO Q6H PRN (Reason: pain) 5 Days Qty: 20 0RF Continued norgestimate-ethinyl estradiol [[place]-L[place]] 0.25-35 mg-mcg tablet See Rx Instructions .ROUTE .COMPLEX Qty: 364 0RF Dose Instruction: take 1 tablet by mouth once daily Rx Instructions: take 1 tablet by mouth once daily Referrals / Follow Up: Orion Reid MD [Med Staff - Active Staff] - Within 1 Week Anu Biggs MD [Primary Care Provider] - Within 2 Weeks Maria Dolores Summers PA-C [Med Staff - Adv Practice Prof] - Disposition Disposition (needs filled in before D/C Order can be placed): Home, Self Care
== END 2022-03-28 17:30 | disposition home or self-care (01) | DRG 330 ==
LOC: ED 12:54 → SDC 13:31 → AC 13:32 → SDC 17:26 → MS3 17:26
PROVIDERS: Admitting Provider Internal Medicine; Emergency Provider Emergency Medicine; PCP Family Medicine; Visit Provider Surgery
PROC: 0DBB0ZZ Excision of Ileum, Open Approach (ICD-10-PCS; CPT 49320; principal; 2022-03-26 14:15)
DX: Q43.0 Meckel's diverticulum (displaced) (hypertrophic) (principal); K35.80 Unspecified acute appendicitis; Z53.31 Laparoscopic surgical procedure converted to open procedure
CPT/HCPCS: 36415; 74176; 74177; 80048; 80053; 81001; 81025; 83735; 84100; 84443; 85025; 87070; 87075; 87077; 87086; 87088; 87186; 87205; 88304; 94668; 99252; 99283; J7030; J7040; Q9967; A4216; C1760; G0463; J2405

== ENCOUNTER → 2022-12-19 | Outpatient (CLI) | payer SELFPAY ==
[2022-12-31 12:10] LABS: HPV Reflexed? NOT INDICATED
[2022-12-31 12:10] LABS: HPV Reflexed? NOT INDICATED
== END | disposition home or self-care (01) ==
PROVIDERS: PCP Internal Medicine; Visit Provider Obstetrics & Gynecology
DX: Z12.4 Encounter for screening for malignant neoplasm of cervix (principal); C53.9 Malignant neoplasm of cervix uteri, unspecified
CPT/HCPCS: 88175; G0145